=== PATIENT | male | born 1965 | race Caucasian/White ===

== ENCOUNTER 2017-02-19 03:20 | Inpatient (IN) | payer OTHER ==
[2017-02-19] MEDS: SODIUM CHLORIDE 0.9% 1,000 ML IV ONE ×2 (03:20→09:26)
[2017-02-19] MEDS: NOREPINEPHRIN 4 MG-0.9% NS PMX 4 MG/250 ML ML IV SCH ×7 (03:26→23:51)
[2017-02-19] MEDS ORDERED: SODIUM CHLORIDE 0.9% 1,000 ML IV ONE ×2 (03:34→18:19)
--- NOTE | 2017-02-19 03:40 | ED ---
General Adult HPI - General Stated complaint: Unresponsive Time Seen by Provider: 02/19/17 03:20 Source: police, EMS, RN notes reviewed Mode of arrival: EMS Limitations: altered mental status, physical limitation - History of Present Illness Initial comments: Patient is a 51-year-old male presenting to emergency department by EMS. Patient was found unresponsive on arrival. Patient was asystole. Patient was intubated by EMS. Patient underwent approximately 20 minutes of CPR. Patient did receive Narcan and sodium bicarb and for epinephrine prior to arrival. Pulse did return just prior to arrival. Patient is unresponsive and provides no significant history. Upon arrival patient does lose his pulse again. EMS does suspect heroin overdose. They state there was a person present trying to provide Narcan. There was needles and other drug paraphernalia at the scene. - Related Data Home Medications Medication Instructions Recorded Confirmed Loratadine [Claritin] 10 mg PO DAILY 11/10/15 05/15/16 Omeprazole [PriLOSEC] 20 mg PO AC-BRKFST 11/10/15 05/15/16 Hydrocodone/Acetaminophen [[place] 1 tab PO Q6HR PRN 05/15/16 05/15/16 7.5-325] Previous Rx's Medication Instructions Recorded Albuterol Inhaler [Ventolin Hfa 1 - 2 puff INHALATION Q6HR PRN #1 11/11/15 Inhaler] inhaler Albuterol Nebulized [Ventolin 2.5 mg INHALATION Q4H #30 nebu 11/11/15 Nebulized] Allergies Allergy/AdvReac Type Severity Reaction Status Date / Time No Known Allergies Allergy Verified 05/15/16 15:17 Review of Systems ROS Statement: Those systems with pertinent positive or pertinent negative responses have been documented in the HPI. ROS Other: All systems not noted in ROS Statement are negative. Limitations: ROS unobtainable due to patients medical condition Past Medical History Past Medical History: GERD/Reflux Additional Past Medical History / Comment(s): hepatitis c, back pain History of Any Multi-Drug Resistant Organisms: None Reported Past Surgical History: No Surgical Hx Reported Past Psychological History: No Psychological Hx Reported Smoking Status: Former smoker Past Alcohol Use History: Occasional Past Drug Use History: None Reported General Exam Limitations: altered mental status, physical limitation General appearance: obtunded Head exam: Present: other (Bleeding from the left nares. EMS states they did attempt nasal intubation) Eye exam: Present: other (Pupils fixed and dilated) ENT exam: Present: other (Intubated) Neck exam: Present: normal inspection Respiratory exam: Present: other (No spontaneous breath sounds. Equal breath sounds with bagging insufflation) Cardiovascular Exam: Present: other (No spontaneous heart sounds. Following return of pulse patient does have tachycardia. Pedal pulses 2/4 bilateral. Radial pulses 2/4 bilateral. Carotid pulses 2/4 bilateral) GI/Abdominal exam: Present: soft. Absent: tenderness Extremities exam: Present: normal inspection Neurological exam: Present: other (Unresponsive. GCS 3.) Psychiatric exam: Present: other (Unresponsive) Skin exam: Present: normal color Course Vital Signs 02/19/17 02/19/17 02/19/17 03:28 03:54 04:00 Pulse Rate 106 H 89 Respiratory 16 16 Rate Blood Pressure 187/113 132/68 O2 Sat by Pulse 98 97 Oximetry 02/19/17 02/19/17 02/19/17 04:02 04:19 05:25 Pulse Rate 82 86 93 Respiratory 16 16 16 Rate Blood Pressure 98/54 106/56 167/80 O2 Sat by Pulse 97 95 99 Oximetry 02/19/17 06:00 Pulse Rate 83 Respiratory 16 Rate Blood Pressure 155/81 O2 Sat by Pulse 100 Oximetry - Reevaluation(s) Reevaluation #1: 02/19/17 03:38 After 1 epinephrine and a few minutes of CPR patient did have return of circulation. 02/19/17 04:44 Girlfriend was updated. The brother was reportedly arrested. Girlfriend states there is no other family. 02/19/17 04:58 Based sensory is criteria and possible urinary tract infection patient does meet criteria for severe sepsis diagnosed at 4:56 AM. 02/19/17 06:44 Patient again reevaluated and unchanged. Patient is somewhat breathing over the vent however no other activity. Case was discussed in detail with Dr. Waldron, who will consult. Case also discussed with Dr. Vergara, who will admit for hospital call. EKG Findings - EKG Comments: EKG Findings:: Normal sinus rhythm 72. For screening AV block ND 204. QRS 128. QT 520. QTc 569. Normal axis. Nonspecific intraventricular block. Lateral ST depression. Procedures - ABG Interpretation Ph: 6.96 PCO2: 65.4 PO2: 120 Bicarbonate: 13.8 Interpretation: respiratory acidosis, metabolic acidosis - Sepsis Sepsis Focused Exam #1 Time Sepsis Criteria Met: 04:56 Sepsis Focused Exam Date: 02/19/17 Sepsis Focused Exam Time: 05:30 Sepsis Focused Exam Complete: Yes Vital Signs & RN Notes Reviewed: Yes Capillary Refill: < 2 Seconds: Fingers, Toes Peripheral Pulses: Normal: Radial (R), Radial (L), Dorsalis Pedis (R), Dorsalis Pedis (L) Skin Color: Normal for Patient Respiratory Exam: wheezes Cardiovascular Exam: regular rate, normal rhythm Medical Decision Making - Lab Data Result diagrams: 02/19/17 03:55 02/19/17 03:55 Lab Results 02/19/17 02/19/17 02/19/17 Range/Units 03:43 03:55 03:55 WBC (3.8-10.6) k/uL RBC (4.30-5.90) m/uL Hgb (13.0-17.5) gm/dL Hct (39.0-53.0) % MCV (80.0-100.0) fL MCH (25.0-35.0) pg MCHC (31.0-37.0) g/dL RDW (11.5-15.5) % Plt Count (150-450) k/uL Neutrophils % (Manual) % Lymphocytes % (Manual) % Monocytes % (Manual) % Eosinophils % (Manual) % Myelocytes % % Neutrophils # (Manual) (1.3-7.7) k/uL Lymphocytes # (Manual) (1.0-4.8) k/uL Monocytes # (Manual) (0-1.0) k/uL Eosinophils # (Manual) (0-0.7) k/uL Nucleated RBCs (0-0) /100 WBC Manual Slide Review Reactive Lymphocytes Hypochromasia Macrocytosis PT (9.0-12.0) sec INR (<1.1) APTT (22.0-30.0) sec Sample Site ABG pH (7.35-7.45) ABG pCO2 (35-45) mmHg ABG pO2 (83-108) mmHg ABG HCO3 (21-25) mmol/L ABG Total CO2 (19-24) mmol/L ABG O2 Saturation (94-97) % ABG Base Excess mmol/L FiO2 % Sodium 141 (137-145) mmol/L Potassium 3.5 (3.5-5.1) mmol/L Chloride 103 (98-107) mmol/L Carbon Dioxide 14 L (22-30) mmol/L Anion Gap 24 mmol/L BUN 13 (9-20) mg/dL Creatinine 1.62 H (0.66-1.25) mg/dL Est GFR (MDRD) Af Amer 55 (>60 ml/min/1.73 sqM) Est GFR (MDRD) Non-Af 45 (>60 ml/min/1.73 sqM) Glucose 535 H* (74-99) mg/dL POC Glucose (mg/dL) 475 H (75-99) mg/dL POC Glu Car Detailer ID Jamil Jacobo Plasma Lactic Acid Ger (0.7-2.0) mmol/L Calcium 8.6 (8.4-10.2) mg/dL Total Bilirubin 0.8 (0.2-1.3) mg/dL AST 242 H (17-59) U/L ALT 216 H (21-72) U/L Alkaline Phosphatase 73 (38-126) U/L Total Creatine Kinase 281 H (55-170) U/L CK-MB (CK-2) 2.2 (0.0-2.4) ng/mL CK-MB (CK-2) Rel Index 0.8 Troponin I 0.033 (0.000-0.034) ng/mL Total Protein 5.6 L (6.3-8.2) g/dL Albumin 3.2 L (3.5-5.0) g/dL Urine Color Urine Appearance (Clear) Urine pH (5.0-8.0) Ur Specific [place] (1.001-1.035) Urine Protein (Negative) Urine Glucose (UA) (Negative) Urine Ketones (Negative) Urine Blood (Negative) Urine Nitrite (Negative) Urine Bilirubin (Negative) Urine Urobilinogen (<2.0) mg/dL Ur Leukocyte Esterase (Negative) Urine RBC (0-5) /hpf Urine WBC (0-5) /hpf Urine Sperm (None) /hpf Urine Opiates Screen (NotDetected) Ur Oxycodone Screen (NotDetected) Urine Methadone Screen (NotDetected) Ur Propoxyphene Screen (NotDetected) Ur Barbiturates Screen (NotDetected) U Tricyclic Antidepress (NotDetected) Ur Phencyclidine Scrn (NotDetected) Ur Amphetamines Screen (NotDetected) U Methamphetamines Scrn (NotDetected) U Benzodiazepines Scrn (NotDetected) Urine Cocaine Screen (NotDetected) U Marijuana (THC) Screen (NotDetected) Serum Alcohol 119 mg/dL Acetone, Qual (Negative) 02/19/17 02/19/17 02/19/17 Range/Units 03:55 03:55 03:55 WBC 20.8 H (3.8-10.6) k/uL RBC 4.37 (4.30-5.90) m/uL Hgb 14.0 (13.0-17.5) gm/dL Hct 46.2 (39.0-53.0) % MCV 105.8 H (80.0-100.0) fL MCH 32.0 (25.0-35.0) pg MCHC 30.2 L (31.0-37.0) g/dL RDW 12.6 (11.5-15.5) % Plt Count 205 (150-450) k/uL Neutrophils % (Manual) 26.0 % Lymphocytes % (Manual) 64.0 % Monocytes % (Manual) 4.0 % Eosinophils % (Manual) 2.0 % Myelocytes % 4.0 % Neutrophils # (Manual) 5.4 (1.3-7.7) k/uL Lymphocytes # (Manual) 13.3 H (1.0-4.8) k/uL Monocytes # (Manual) 0.8 (0-1.0) k/uL Eosinophils # (Manual) 0.4 (0-0.7) k/uL Nucleated RBCs 0 (0-0) /100 WBC Manual Slide Review Performed Reactive Lymphocytes Present Hypochromasia Marked Macrocytosis Slight PT 12.0 (9.0-12.0) sec INR 1.2 (<1.1) APTT 40.9 H (22.0-30.0) sec Sample Site ABG pH (7.35-7.45) ABG pCO2 (35-45) mmHg ABG pO2 (83-108) mmHg ABG HCO3 (21-25) mmol/L ABG Total CO2 (19-24) mmol/L ABG O2 Saturation (94-97) % ABG Base Excess mmol/L FiO2 % Sodium (137-145) mmol/L Potassium (3.5-5.1) mmol/L Chloride (98-107) mmol/L Carbon Dioxide (22-30) mmol/L Anion Gap mmol/L BUN (9-20) mg/dL Creatinine (0.66-1.25) mg/dL Est GFR (MDRD) Af Amer (>60 ml/min/1.73 sqM) Est GFR (MDRD) Non-Af (>60 ml/min/1.73 sqM) Glucose (74-99) mg/dL POC Glucose (mg/dL) (75-99) mg/dL POC Glu Car Detailer ID Plasma Lactic Acid Ger (0.7-2.0) mmol/L Calcium (8.4-10.2) mg/dL Total Bilirubin (0.2-1.3) mg/dL AST (17-59) U/L ALT (21-72) U/L Alkaline Phosphatase (38-126) U/L Total Creatine Kinase (55-170) U/L CK-MB (CK-2) (0.0-2.4) ng/mL CK-MB (CK-2) Rel Index Troponin I (0.000-0.034) ng/mL Total Protein (6.3-8.2) g/dL Albumin (3.5-5.0) g/dL Urine Color Urine Appearance (Clear) Urine pH (5.0-8.0) Ur Specific [place] (1.001-1.035) Urine Protein (Negative) Urine Glucose (UA) (Negative) Urine Ketones (Negative) Urine Blood (Negative) Urine Nitrite (Negative) Urine Bilirubin (Negative) Urine Urobilinogen (<2.0) mg/dL Ur Leukocyte Esterase (Negative) Urine RBC (0-5) /hpf Urine WBC (0-5) /hpf Urine Sperm (None) /hpf Urine Opiates Screen (NotDetected) Ur Oxycodone Screen (NotDetected) Urine Methadone Screen (NotDetected) Ur Propoxyphene Screen (NotDetected) Ur Barbiturates Screen (NotDetected) U Tricyclic Antidepress (NotDetected) Ur Phencyclidine Scrn (NotDetected) Ur Amphetamines Screen (NotDetected) U Methamphetamines Scrn (NotDetected) U Benzodiazepines Scrn (NotDetected) Urine Cocaine Screen (NotDetected) U Marijuana (THC) Screen (NotDetected) Serum Alcohol mg/dL Acetone, Qual Negative (Negative) 02/19/17 02/19/17 02/19/17 Range/Units 03:57 04:28 04:36 WBC (3.8-10.6) k/uL RBC (4.30-5.90) m/uL Hgb (13.0-17.5) gm/dL Hct (39.0-53.0) % MCV (80.0-100.0) fL MCH (25.0-35.0) pg MCHC (31.0-37.0) g/dL RDW (11.5-15.5) % Plt Count (150-450) k/uL Neutrophils % (Manual) % Lymphocytes % (Manual) % Monocytes % (Manual) % Eosinophils % (Manual) % Myelocytes % % Neutrophils # (Manual) (1.3-7.7) k/uL Lymphocytes # (Manual) (1.0-4.8) k/uL Monocytes # (Manual) (0-1.0) k/uL Eosinophils # (Manual) (0-0.7) k/uL Nucleated RBCs (0-0) /100 WBC Manual Slide Review Reactive Lymphocytes Hypochromasia Macrocytosis PT (9.0-12.0) sec INR (<1.1) APTT (22.0-30.0) sec Sample Site rrad ABG pH <7.00 L* (7.35-7.45) ABG pCO2 65 H (35-45) mmHg ABG pO2 120 H (83-108) mmHg ABG HCO3 14 L (21-25) mmol/L ABG Total CO2 16 L (19-24) mmol/L ABG O2 Saturation 95.0 (94-97) % ABG Base Excess -16.2 mmol/L FiO2 100 % Sodium (137-145) mmol/L Potassium (3.5-5.1) mmol/L Chloride (98-107) mmol/L Carbon Dioxide (22-30) mmol/L Anion Gap mmol/L BUN (9-20) mg/dL Creatinine (0.66-1.25) mg/dL Est GFR (MDRD) Af Amer (>60 ml/min/1.73 sqM) Est GFR (MDRD) Non-Af (>60 ml/min/1.73 sqM) Glucose (74-99) mg/dL POC Glucose (mg/dL) 438 H (75-99) mg/dL POC Glu Car Detailer ID Yogesh, Rubens Plasma Lactic Acid Ger (0.7-2.0) mmol/L Calcium (8.4-10.2) mg/dL Total Bilirubin (0.2-1.3) mg/dL AST (17-59) U/L ALT (21-72) U/L Alkaline Phosphatase (38-126) U/L Total Creatine Kinase (55-170) U/L CK-MB (CK-2) (0.0-2.4) ng/mL CK-MB (CK-2) Rel Index Troponin I (0.000-0.034) ng/mL Total Protein (6.3-8.2) g/dL Albumin (3.5-5.0) g/dL Urine Color Yellow Urine Appearance Turbid (Clear) Urine pH 5.5 (5.0-8.0) Ur Specific [place] 1.009 (1.001-1.035) Urine Protein 2+ H (Negative) Urine Glucose (UA) Negative (Negative) Urine Ketones Negative (Negative) Urine Blood Small H (Negative) Urine Nitrite Negative (Negative) Urine Bilirubin Negative (Negative) Urine Urobilinogen <2.0 (<2.0) mg/dL Ur Leukocyte Esterase Negative (Negative) Urine RBC 14 H (0-5) /hpf Urine WBC 34 H (0-5) /hpf Urine Sperm Many H (None) /hpf Urine Opiates Screen Detected H (NotDetected) Ur Oxycodone Screen Not Detected (NotDetected) Urine Methadone Screen Not Detected (NotDetected) Ur Propoxyphene Screen Not Detected (NotDetected) Ur Barbiturates Screen Not Detected (NotDetected) U Tricyclic Antidepress Not Detected (NotDetected) Ur Phencyclidine Scrn Not Detected (NotDetected) Ur Amphetamines Screen Not Detected (NotDetected) U Methamphetamines Scrn Not Detected (NotDetected) U Benzodiazepines Scrn Not Detected (NotDetected) Urine Cocaine Screen Not Detected (NotDetected) U Marijuana (THC) Screen Not Detected (NotDetected) Serum Alcohol mg/dL Acetone, Qual (Negative) 02/19/17 Range/Units 05:25 WBC (3.8-10.6) k/uL RBC (4.30-5.90) m/uL Hgb (13.0-17.5) gm/dL Hct (39.0-53.0) % MCV (80.0-100.0) fL MCH (25.0-35.0) pg MCHC (31.0-37.0) g/dL RDW (11.5-15.5) % Plt Count (150-450) k/uL Neutrophils % (Manual) % Lymphocytes % (Manual) % Monocytes % (Manual) % Eosinophils % (Manual) % Myelocytes % % Neutrophils # (Manual) (1.3-7.7) k/uL Lymphocytes # (Manual) (1.0-4.8) k/uL Monocytes # (Manual) (0-1.0) k/uL Eosinophils # (Manual) (0-0.7) k/uL Nucleated RBCs (0-0) /100 WBC Manual Slide Review Reactive Lymphocytes Hypochromasia Macrocytosis PT (9.0-12.0) sec INR (<1.1) APTT (22.0-30.0) sec Sample Site ABG pH (7.35-7.45) ABG pCO2 (35-45) mmHg ABG pO2 (83-108) mmHg ABG HCO3 (21-25) mmol/L ABG Total CO2 (19-24) mmol/L ABG O2 Saturation (94-97) % ABG Base Excess mmol/L FiO2 % Sodium (137-145) mmol/L Potassium (3.5-5.1) mmol/L Chloride (98-107) mmol/L Carbon Dioxide (22-30) mmol/L Anion Gap mmol/L BUN (9-20) mg/dL Creatinine (0.66-1.25) mg/dL Est GFR (MDRD) Af Amer (>60 ml/min/1.73 sqM) Est GFR (MDRD) Non-Af (>60 ml/min/1.73 sqM) Glucose (74-99) mg/dL POC Glucose (mg/dL) (75-99) mg/dL POC Glu Car Detailer ID Plasma Lactic Acid Ger 11.8 H* (0.7-2.0) mmol/L Calcium (8.4-10.2) mg/dL Total Bilirubin (0.2-1.3) mg/dL AST (17-59) U/L ALT (21-72) U/L Alkaline Phosphatase (38-126) U/L Total Creatine Kinase (55-170) U/L CK-MB (CK-2) (0.0-2.4) ng/mL CK-MB (CK-2) Rel Index Troponin I (0.000-0.034) ng/mL Total Protein (6.3-8.2) g/dL Albumin (3.5-5.0) g/dL Urine Color Urine Appearance (Clear) Urine pH (5.0-8.0) Ur Specific [place] (1.001-1.035) Urine Protein (Negative) Urine Glucose (UA) (Negative) Urine Ketones (Negative) Urine Blood (Negative) Urine Nitrite (Negative) Urine Bilirubin (Negative) Urine Urobilinogen (<2.0) mg/dL Ur Leukocyte Esterase (Negative) Urine RBC (0-5) /hpf Urine WBC (0-5) /hpf Urine Sperm (None) /hpf Urine Opiates Screen (NotDetected) Ur Oxycodone Screen (NotDetected) Urine Methadone Screen (NotDetected) Ur Propoxyphene Screen (NotDetected) Ur Barbiturates Screen (NotDetected) U Tricyclic Antidepress (NotDetected) Ur Phencyclidine Scrn (NotDetected) Ur Amphetamines Screen (NotDetected) U Methamphetamines Scrn (NotDetected) U Benzodiazepines Scrn (NotDetected) Urine Cocaine Screen (NotDetected) U Marijuana (THC) Screen (NotDetected) Serum Alcohol mg/dL Acetone, Qual (Negative) - Radiology Data Radiology results: image reviewed (chest x-ray shows widening of the superior mediastinum. Vascular congestion. Endotracheal tube in place. Computed tomography scan of the brain shows concern for hypoxic ischemic injury, cerebral edema. Computed tomography scan of the chest shows no evidence of aneurysm or dissection. consolidations that could represent atelectasis or aspiration.) Critical Care Time Critical Care Time: Yes Total Critical Care Time: 45 Disposition Clinical Impression: Cardiac arrest, Acute respiratory failure Disposition: ADMITTED IP TO THIS HOSP Condition: Critical
[2017-02-19 03:53] LABS: Glucose,Whole Blood 475 mg/dL (75-99)
[2017-02-19 04:04] LABS: CH 31.4; CHCM 29.8; HCT 46.2 % (39.0-53.0); HDW 2.45; Hypochromasia Marked; MCHC 30.2 g/dL (31.0-37.0); MCV 105.8 fL (80.0-100.0); Macrocytosis Slight; Mean Platelet Volume 7.1; RBC 4.37 m/uL (4.30-5.90); RDW 12.6 % (11.5-15.5); WBC 20.8 k/uL (3.8-10.6); WBC (Perox) 20.48
--- NOTE | 2017-02-19 04:05 | XR ---
INDICATION: Altered mental status COMPARISON: CXR 11/12/15 FINDINGS: Single frontal view of the chest is provided. Endotracheal tube has been placed with tip 3.3 cm above the michael. Endogastric tube extends to the stomach. Pacer pad projects over the right chest. There is cardiomegaly with widening of the superior mediastinum, concerning for vascular injury. There is pulmonary vascular congestion and interstitial edema. There is no pleural effusion or pneumothorax. There are no acute osseous findings. IMPRESSION: 1. Widening of the superior mediastinum, concerning for vascular injury. 2. Cardiomegaly with vascular congestion and interstitial edema. 3. Endotracheal tube and endogastric tube are in place.
[2017-02-19 04:08] LABS: Appearance,Urine Turbid (Clear); Bilirubin,Urine Negative (Negative); Glucose,Urine (UA) Negative (Negative); Ketones,Urine Negative (Negative); Leukocyte Esterase,Urine Negative (Negative); Nitrite,Urine Negative (Negative); PH, Urine 5.5 (5.0-8.0); Particle Count 30425; Protein,Urine 2+ (Negative); RBC,Urine 14 /hpf (0-5); Specific Gravity,Urine 1.009 (1.001-1.035); Sperm,Urine Many /hpf; UA Billing (MACRO vs. MICRO) MICRO; Urobilinogen,Urine <2.0 mg/dL (<2.0); WBC,Urine 34 /hpf (0-5)
[2017-02-19 04:16] LABS: Calcium 8.6 mg/dL (8.4-10.2); INR 1.2 (<1.1); Partial Thromboplastin Time 40.9 sec (22.0-30.0); Potassium 3.5 mmol/L (3.5-5.1); Total Bilirubin 0.8 mg/dL (0.2-1.3); Total Protein 5.6 g/dL (6.3-8.2)
--- NOTE | 2017-02-19 04:26 | CT ---
INDICATION: Altered mental status TECHNIQUE: Noncontrast helical CT acquisition was performed through the brain. Sagittal and coronal reformatted images provided. This CT exam was performed using one or more of the following dose reduction techniques: automated exposure control, adjustment of the mA and/or kV according to patient size, and/or use of iterative reconstruction technique. DOSIMETRY: CTDIvol 57.40 mGy; DLP 1029.90 mGy-cm COMPARISON: None. FINDINGS: There is no evidence of acute intracranial hemorrhage or midline shift. There is generalized sulcal effacement and loss of walton-white matter differentiation. The ventricles are narrowed. The basal cisterns are almost completely effaced. There is no tonsillar herniation. No evidence of skull fracture. The patient is intubated. There is mucosal thickening in the ethmoid air cells and layering fluid in the right maxillary sinus and the sphenoid sinus, possibly related to intubated state. The mastoid air cells are clear. IMPRESSION: 1. Generalized cerebral edema with indistinct walton-white matter differentiation, sulcal and basal cistern effacement, and narrowing of the lateral ventricles, concerning for hypoxic ischemic injury.
[2017-02-19] MEDS ORDERED: SODIUM CHLORIDE 0.9% 1,000 ML IV STA ×3 (04:28→04:57)
[2017-02-19] MEDS ORDERED: RX INFO: IV CONTRAST WAS GIVEN 1 EACH MISC MISCELLANE PRN (04:29)
[2017-02-19 04:36] LABS: Creatine Kinase MB 2.2 ng/mL (0.0-2.4); Troponin I 0.033 ng/mL (0.000-0.034)
[2017-02-19 04:38] LABS: Glucose,Whole Blood 438 mg/dL (75-99)
[2017-02-19] MEDS ORDERED: LORazepam 2 MG/ML SYRINGE IV PRN ×2 (04:40)
[2017-02-19] MEDS ORDERED: SODIUM ACETATE 50 MEQ in WATER FOR INJECTION, STERILE 250 ML IV ONE (04:42)
[2017-02-19 04:45] LABS: Add Differential Manual Differential
[2017-02-19] MEDS ORDERED: PROPOFOL 500 MG in EMPTY BAG 1 BAG IV SCH (04:45)
[2017-02-19 04:48] LABS: Manual Review Performed; Nucleated Red Blood Cells 0 /100 WBC (0-0); Reactive Lymphocytes Present; Total Cells Counted 200
[2017-02-19] MEDS ORDERED: INSULIN REGULAR 100 UNIT/ML VIAL IV ONE (04:55)
[2017-02-19] MEDS ORDERED: SODIUM CHLORIDE 0.9% 250 ML IV STA (04:57)
[2017-02-19 05:10] LABS: ABG PCO2 65 mmHg (35-45); ABG PO2 120 mmHg (83-108)
[2017-02-19 05:11] LABS: ABG HCO3 14 mmol/L (21-25); ABG PH <7.00 (7.35-7.45)
[2017-02-19 05:12] LABS: ABG Base Excess -16.2 mmol/L; ABG TCO2 16 mmol/L (19-24)
--- NOTE | 2017-02-19 05:40 | CT ---
CTA CHEST WITH CONTRAST CTA ABDOMEN + PELVIS WITH CONTRAST INDICATION: Chest pain TECHNIQUE: Helical CT acquisition was performed through the chest, abdomen, and pelvis per institutional CT angiogram protocol prior to and following the administration of intravenous contrast. Multiplanar reformatted images were provided including coronal and sagittal MIP reconstructed images. This CT exam was performed using one or more of the following dose reduction techniques: automated exposure control, adjustment of the mA and/or kV according to patient size, and/or use of iterative reconstruction technique. DOSIMETRY: DLP 2650.10 mGy-cm; CTDIvol 112.60 mGy COMPARISON: CXR 02/19/17 FINDINGS: CHEST: Endogastric tube and endotracheal tube are in place. There is no evidence of thoracic aortic aneurysm or dissection. Main pulmonary artery is normal in caliber. There is mild cardiomegaly without pericardial effusion. Small multicompartment mediastinal lymph nodes are not significant by size criteria. There are dependent consolidations in the right upper and bilateral lower lobes, right greater than left. There is subsegmental atelectasis in the left upper lobe. There is no pleural effusion or pneumothorax. There are no acute osseous findings. ABDOMEN + PELVIS: There is hepatomegaly and steatosis. Gallbladder, spleen, pancreas, and adrenal glands are unremarkable. Both kidneys enhance symmetrically. There is no hydronephrosis. Aorta and IVC are normal. There is no adenopathy. There is no evidence of small or large bowel obstruction. Visualized appendix is normal. There is fluid distention of the stomach with endogastric tube in place. Urinary bladder is decompressed with Laguerre catheter. Prostate is unremarkable. No acute osseous findings. IMPRESSION: 1. No evidence of aortic aneurysm or dissection. 2. Dependent consolidations in the upper and lower lobes, right greater than left, atelectasis or aspiration. These opacities accounted for the appearance of mediastinal widening on reference chest radiograph. 3. No evidence of acute intra-abdominal process.
[2017-02-19] MEDS: WATER FOR INJECTION, STERILE 1,000 ML with SODIUM ACETATE 150 MEQ IV SCH ×4 (05:57→20:42)
[2017-02-19] MEDS ORDERED: NALOXONE 0.4 MG/ML 1 ML VIAL IV PRN (06:47)
[2017-02-19] MEDS ORDERED: IPRATROPIUM-ALBUTEROL 3 ML NEB INHALATION PRN (06:47)
[2017-02-19] MEDS: PIPERACILLIN-TAZOBACTAM 3.375 GM in DEXTROSE/WATER 1 50ML.BAG IVPB SCH ×2 (07:28→20:16)
[2017-02-19] MEDS: IPRATROPIUM-ALBUTEROL 3 ML NEB INHALATION SCH ×4 (07:40→19:01)
[2017-02-19 08:17] LABS: Glucose,Whole Blood 291 mg/dL (75-99)
[2017-02-19 09:34] LABS: ABG Base Excess -13.5 mmol/L; ABG HCO3 13 mmol/L (21-25); ABG PCO2 35 mmHg (35-45); ABG PH 7.19 (7.35-7.45); ABG PO2 72 mmHg (83-108); ABG TCO2 14 mmol/L (19-24)
[2017-02-19] MEDS ORDERED: INSULIN REGULAR BOLUS (FROM DRIP BAG) IV PRN (09:38)
--- NOTE | 2017-02-19 10:53 | P.CNPUL ---
History of Present Illness Consult date: 02/19/17 Requesting physician: Marilyn Vergara Reason for consult: other (Status post cardiac arrest.) Chief complaint: Cardiac arrest. History of present illness: This is a 51-year-old gentleman with a history of diabetes mellitus. The patient was brought in by EMS after being found unresponsive and had undergone 20 minutes of CPR in the field and received a total of 8 mg of Narcan. The history is taken by the patient's girlfriend who stated the patient was at a friend's house drinking and she was driving him home when he was passing out in the car she was trying to shake him awake. When she got to the house herself and another friend dragged into the house on a blanket. They're unsure if he was breathing at that time. The girlfriend called the patient's brother who then called 911. He arrived at the house with Narcan. Apparently there was drug paraphernalia at the scene and suspected heroin overdose. His urine drug screen was positive for opiates. Serum alcohol 119 The patient did obtain return of spontaneous circulation was intubated and transferred here to the intensive care unit. He is seen today in consultation. He is on the mechanical ventilator at assist control mode rate of 24, tidal volume 600, FiO2 100% and a PEEP of 5. Earlier blood gases at 4:30 AM revealed a pO2 120, pCO2 of 65 and a pH less than 7. The patient does not respond to any verbal or painful stimuli. There is absent ocular cephalic response, absent corneal response, pupils are fixed and dilated. There is no gag reflex. He is not breathing over the ventilator. He is currently receiving a 0.9 normal saline at 100 MLS per hour. He did receive 5 L of fluid resuscitation. He has a D5W with 3 A of sodium acetate at 125 miles per hour. He is on norepinephrine at 20 mcg/m. He has received IV Zosyn. Computed tomography scan of the brain revealed generalized cerebral edema with indistinct [place]-white matter differentiation, sulcal and basal cistern effacement, and narrowing of the lateral ventricles concerning for hypoxic ischemic injury. Chest x-ray revealed evidence of widening of the superior mediastinum, cardiomegaly. CT of the chest revealed no evidence of aortic aneurysm or dissection. There was some consolidation of the upper and lower lobes right greater than left suspicious for aspiration. Review of Systems ROS unobtainable: due to endotracheal tube Past Medical History Past Medical History: Diabetes Mellitus, GERD/Reflux Additional Past Medical History / Comment(s): hepatitis c, back pain History of Any Multi-Drug Resistant Organisms: None Reported Past Surgical History: No Surgical Hx Reported Past Psychological History: No Psychological Hx Reported Smoking Status: Former smoker Past Alcohol Use History: Occasional Past Drug Use History: None Reported Medications and Allergies Home Medications Medication Instructions Recorded Confirmed Type Loratadine [Claritin] 10 mg PO DAILY 11/10/15 05/15/16 History Omeprazole [PriLOSEC] 20 mg PO AC-BRKFST 11/10/15 05/15/16 History Hydrocodone/Acetaminophen [[place] 1 tab PO Q6HR PRN 05/15/16 05/15/16 History 7.5-325] Allergies Allergy/AdvReac Type Severity Reaction Status Date / Time No Known Allergies Allergy Verified 05/15/16 15:17 Physical Exam Vitals: Vital Signs Temp Pulse Resp BP Pulse Ox 02/19/17 09:20 78 0 L 97/65 92 L 02/19/17 09:10 78 0 L 98/66 91 L 02/19/17 09:00 78 0 L 94/62 90 L 02/19/17 08:50 79 0 L 94/65 90 L 02/19/17 08:40 80 0 L 71/48 89 L 02/19/17 08:30 91.7 F L 81 24 71/48 87 L 02/19/17 08:21 77 18 85/50 94 L 02/19/17 08:20 91.7 F L 78 89 L 02/19/17 08:19 77 18 85/50 94 L 02/19/17 08:11 77 02/19/17 07:52 77 18 82/49 94 L 02/19/17 07:42 76 02/19/17 07:35 77 18 81/45 94 L 02/19/17 06:54 68 24 84/49 100 Intake and Output 02/18/17 02/19/17 02/19/17 22:59 06:59 14:59 Intake Total 7.125 88.562 Output Total 0 Balance 7.125 88.562 Intake: Intake, IV Titration 7.125 88.562 Amount Norepinephrin 4 mg-0.9% 7.125 88.562 Ns Pmx 4 mg In 250 ml @ Titrate IV .Q0M [facility] Rx#: [id number] Output: Urine 0 Other: Weight 114 kg Patient Weight 02/20/17 06:59 Weight 114 kg GENERAL EXAM: Unresponsive, intubated. HEAD: Normocephalic. EYES: Pupils are fixed and dilated. NOSE: Clear with pink turbinates. THROAT: No erythema or exudates. NECK: No masses, no JVD. CHEST: No chest wall deformity. LUNGS: Equal air entry with no crackles, wheeze, rhonchi or dullness. CVS: S1 and S2 normal with no audible murmurs, regular rhythm. ABDOMEN: Soft, hypoactive bowel sounds.. SPINE: No scoliosis or deformity SKIN: No rashes Extremities: There is trace peripheral edema. No clubbing, no cyanosis. Peripheral pulses are intact. Results - Laboratory Findings CBC and BMP: 02/19/17 03:55 02/19/17 03:55 ABG ABG pH 7.19 (7.35-7.45) L* 02/19/17 09:25 ABG pCO2 35 mmHg (35-45) 02/19/17 09:25 ABG pO2 72 mmHg (83-108) L 02/19/17 09:25 ABG O2 Saturation 90.0 % (94-97) L 02/19/17 09:25 PT/INR, D-dimer PT 12.0 sec (9.0-12.0) 02/19/17 03:55 INR 1.2 (<1.1) 02/19/17 03:55 Abnormal lab findings: Abnormal Labs 02/19/17 02/19/17 02/19/17 07:49 08:15 09:25 ABG pH 7.19 L* ABG pO2 72 L ABG HCO3 13 L ABG Total CO2 14 L ABG O2 Saturation 90.0 L POC Glucose (mg/dL) 291 H Plasma Lactic Acid Ger 11.1 H* - Diagnostic Findings Chest x-ray: image reviewed Assessment and Plan Plan: Impression: #1 Cardiac arrest secondary to suspected heroin overdose. Currently intubated and on mechanical ventilator. #2 Anoxic brain injury secondary to above. Computed tomography scan of the brain revealed generalized cerebral edema with indistinct [place]-white matter differentiation, sulcal and basal cistern effacement, and narrowing of the lateral ventricles concerning for hypoxic ischemic injury. #3 History of alcohol abuse. #4 History of diabetes mellitus. Plan: The patient was seen and evaluated by Dr. Simmons. His chest x-ray ABGs and labs were reviewed. The patient appears to have sustained severe anoxic brain injury. His family members are at the bedside. Again, there is absence of the oculocephalic response, no corneal reflex, no gag reflex, pupils remained fixed and dilated. He does not respond to verbal or painful stimuli. He is not breathing over the vent. A brain protocol was performed the patient was on a T piece for 100% for 8 minutes without any spontaneous respirations. There is discussion regarding possible discontinuation of life support. In the interim, we'll continue with full supportive care. Ventilator adjustments will be made according to the arterial blood gas results. We'll continue to follow. Critical care time 40 minutes. Time with Patient: Greater than 30
[2017-02-19] MEDS: LEVOFLOXACIN 750MG-D5W PMX 750 MG in DEXTROSE/WATER 1 150ML.BAG IVPB SCH (11:11)
[2017-02-19 11:12] LABS: Glucose,Whole Blood 245 mg/dL (75-99)
[2017-02-19] MEDS: PANTOPRAZOLE 40 MG/10 ML VIAL IV SCH (11:12)
[2017-02-19] MEDS: INSULIN REGULAR 100 UNIT in SODIUM CHLORIDE 0.9% 100 ML IV SCH (11:29)
[2017-02-19 11:34] LABS: Glucose,Whole Blood 289 mg/dL (75-99)
[2017-02-19 12:30] LABS: Glucose,Whole Blood 232 mg/dL (75-99)
[2017-02-19 14:04] LABS: Glucose,Whole Blood 201 mg/dL (75-99)
--- NOTE | 2017-02-19 14:51 | P.CONS ---
History of Present Illness - Reason for Consult Consult date: 02/19/17 - Chief Complaint Unresponsive - History of Present Illness This 51-year-old obese male being evaluated by the neurology service for unresponsiveness status post cardiac arrest. He was brought to the ER via EMS after being found unresponsive. He was being driven home by his girlfriend who witnessed him pass out and he has not regained consciousness at that time EMS did and administered Narcan on seen. And he underwent 20 minutes of CPR in the field. There is a known history of drug use. His drug screen was positive for opiates. Serum alcohol level was 119. He remains intubated and sedated in the ICU. CT of the brain showed no acute intracranial abnormalities. It did show generalized cerebral edema within distinct [place] white matter differentiation. Findings were concerning for hypoxic ischemic injury Review of Systems All systems: negative Constitutional: Reports as per HPI Past Medical History Past Medical History: Diabetes Mellitus, GERD/Reflux Additional Past Medical History / Comment(s): hepatitis c, back pain History of Any Multi-Drug Resistant Organisms: None Reported Past Surgical History: No Surgical Hx Reported Past Psychological History: No Psychological Hx Reported Additional Psychological History / Comment(s): substance abuse history per girlfriend Marina, crack and alcohol. Had been to inpatient rehab Smoking Status: Former smoker Past Alcohol Use History: Occasional Additional Past Alcohol Use History / Comment(s): per girlfriend, patient is a daily drinker, 1 pint of Black Velvet daily on average Past Drug Use History: None Reported Additional Drug Use History / Comment(s): Crack - Past Family History Father Additional Family Medical History / Comment(s): unknown history Medications and Allergies Home Medications Medication Instructions Recorded Confirmed Type Loratadine [Claritin] 10 mg PO DAILY 11/10/15 02/19/17 History Omeprazole [PriLOSEC] 20 mg PO AC-BID 11/10/15 02/19/17 History Hydrocodone/Acetaminophen [[place] 1 tab PO QID PRN 05/15/16 02/19/17 History 7.5-325] Albuterol Inhaler [Ventolin Hfa 1 - 2 puff INHALATION RT-QID PRN 02/19/17 History Inhaler] Albuterol Nebulized [Ventolin 2.5 mg INHALATION RT-QID PRN 02/19/17 02/19/17 History Nebulized] Gabapentin 600 mg PO TID 02/19/17 02/19/17 History metFORMIN HCL [Glucophage] 500 mg PO DAILY 02/19/17 02/19/17 History Allergies Allergy/AdvReac Type Severity Reaction Status Date / Time No Known Allergies Allergy Verified 02/19/17 11:01 Physical Exam Vitals: Vital Signs Temp Pulse Pulse Pulse Pulse Resp BP 02/19/17 13:00 88 24 79/52 02/19/17 12:30 94 24 87/55 02/19/17 12:20 97 23 72/43 02/19/17 12:10 89 24 132/83 02/19/17 12:00 97 24 141/87 02/19/17 11:55 93 02/19/17 11:50 90 23 79/52 02/19/17 11:40 88 24 90/56 02/19/17 11:32 87 02/19/17 11:30 85 24 68/47 02/19/17 11:20 97.6 F 86 24 73/51 02/19/17 11:10 85 23 65/46 02/19/17 11:00 86 24 02/19/17 10:50 88 24 02/19/17 10:40 88 23 79/53 02/19/17 10:30 112 H 24 79/53 02/19/17 10:20 79 0 L 99/64 02/19/17 10:10 79 0 L 100/67 02/19/17 10:00 79 0 L 98/67 02/19/17 09:50 78 0 L 97/65 02/19/17 09:40 79 0 L 103/66 02/19/17 09:30 77 0 L 104/67 02/19/17 09:20 78 0 L 97/65 02/19/17 09:10 78 0 L 98/66 02/19/17 09:00 78 0 L 94/62 02/19/17 08:50 79 0 L 94/65 02/19/17 08:40 80 0 L 71/48 02/19/17 08:30 91.7 F L 81 24 71/48 02/19/17 08:21 77 18 85/50 02/19/17 08:20 91.7 F L 78 02/19/17 08:19 77 18 85/50 02/19/17 08:11 77 02/19/17 07:52 77 18 82/49 02/19/17 07:42 76 02/19/17 07:35 77 18 81/45 02/19/17 07:18 91.7 F L 92 92 92 28 H 02/19/17 06:54 68 24 84/49 BP Pulse Ox 02/19/17 13:00 97 02/19/17 12:30 96 02/19/17 12:20 96 02/19/17 12:10 96 02/19/17 12:00 96 02/19/17 11:55 02/19/17 11:50 96 02/19/17 11:40 96 02/19/17 11:32 02/19/17 11:30 94 L 02/19/17 11:20 93 L 02/19/17 11:10 91 L 02/19/17 11:00 89 L 02/19/17 10:50 88 L 02/19/17 10:40 88 L 02/19/17 10:30 80 L 02/19/17 10:20 96 02/19/17 10:10 95 02/19/17 10:00 94 L 02/19/17 09:50 94 L 02/19/17 09:40 93 L 02/19/17 09:30 93 L 02/19/17 09:20 92 L 02/19/17 09:10 91 L 02/19/17 09:00 90 L 02/19/17 08:50 90 L 02/19/17 08:40 89 L 02/19/17 08:30 87 L 02/19/17 08:21 94 L 02/19/17 08:20 89 L 02/19/17 08:19 94 L 02/19/17 08:11 02/19/17 07:52 94 L 02/19/17 07:42 02/19/17 07:35 94 L 02/19/17 07:18 77/49 89 L 02/19/17 06:54 100 Intake and Output 02/18/17 02/19/17 02/19/17 22:59 06:59 14:59 Intake Total 7.125 2431.213 Output Total 270 Balance 7.125 2161.213 Intake: Intake, IV Titration 7.125 2431.213 Amount Insulin Regular 100 unit 21.151 In Sodium Chloride 0.9% 100 ml @ Per Protocol IV .Q0M [facility] Rx#:[id number] Levofloxacin 750Mg-D5w 100 Pmx 750 mg In Dextrose/ Water 1 150ml.bag @ 100 mls/hr IVPB Q24H [facility] Rx#: [id number] Norepinephrin 4 mg-0.9% 7.125 338.562 Ns Pmx 4 mg In 250 ml @ Titrate IV .Q0M [facility] Rx#: [id number] Piperacillin-Tazobactam 3 12.5 .375 gm In Dextrose/Water 1 50ml.bag @ 12.5 mls/hr IVPB Q8HR [facility] Rx#: [id number] Sodium Acetate 50 meq In 500 Water For Injection, Sterile 250 ml @ 900 mls/ hr IV ONCE ONE Rx#: [id number] Sodium Chloride 0.9% 1, 460 000 ml @ 100 mls/hr IV . Q10H [facility] Rx#:[id number] Sodium Chloride 0.9% 1, 999 000 ml @ 999 mls/hr IV . Q1H1M [facility] Rx#:[id number] Output: Urine 270 Other: Weight 114 kg Patient Weight 02/20/17 06:59 Weight 114 kg Lying in ICU bed intubated and sedated. - Constitutional General appearance: obese - EENT Eyes: no PERRLA - Neck Neck: no rigidity - Respiratory On respirator - Gastrointestinal General gastrointestinal: distended - Neurologic The patient is intubated and sedated lying in his ICU bed. There is no spontaneous movement. There is no withdrawal to any painful stimuli. Is no pupillary response. Cephalic reflex is negative. There is no gag reflex elicited with manipulation of his tube. He'll reflex is negative. Babinski is negative. Results CBC & Chem 7: 02/19/17 03:55 02/19/17 03:55 Labs: Abnormal Lab Results - Last 24 Hours (Table) 02/19/17 02/19/17 02/19/17 Range/Units 07:49 08:15 09:25 ABG pH 7.19 L* (7.35-7.45) ABG pO2 72 L (83-108) mmHg ABG HCO3 13 L (21-25) mmol/L ABG Total CO2 14 L (19-24) mmol/L ABG O2 Saturation 90.0 L (94-97) % POC Glucose (mg/dL) 291 H (75-99) mg/dL Plasma Lactic Acid Ger 11.1 H* (0.7-2.0) mmol/L 02/19/17 02/19/17 02/19/17 Range/Units 11:10 11:33 12:27 ABG pH (7.35-7.45) ABG pO2 (83-108) mmHg ABG HCO3 (21-25) mmol/L ABG Total CO2 (19-24) mmol/L ABG O2 Saturation (94-97) % POC Glucose (mg/dL) 245 H 289 H 232 H (75-99) mg/dL Plasma Lactic Acid Ger (0.7-2.0) mmol/L 02/19/17 Range/Units 14:03 ABG pH (7.35-7.45) ABG pO2 (83-108) mmHg ABG HCO3 (21-25) mmol/L ABG Total CO2 (19-24) mmol/L ABG O2 Saturation (94-97) % POC Glucose (mg/dL) 201 H (75-99) mg/dL Plasma Lactic Acid Ger (0.7-2.0) mmol/L Assessment and Plan (1) Opiate use Status: Suspected (2) Hypoxic brain injury Status: Acute (3) Acute respiratory failure Status: Acute (4) Cardiac arrest Status: Acute Plan: Given his significant downtime, extent of needed CPR, and current exam, his prognosis is quite poor. Continue mechanical ventilation and continue supportive measures, continue neurological checks. EEG has just been performed and we will evaluate that soon. We will continue to evaluate and make further recommendations based on his condition. Next I have reviewed the history and physical on the above patient. I have reviewed the above note, and agree.
[2017-02-19 16:10] LABS: Glucose,Whole Blood 163 mg/dL (75-99)
[2017-02-19 17:12] LABS: Glucose,Whole Blood 122 mg/dL (75-99)
[2017-02-19 18:43] LABS: ABG Base Excess -1.9 mmol/L; ABG HCO3 22 mmol/L (21-25); ABG PCO2 38 mmHg (35-45); ABG PH 7.39 (7.35-7.45); ABG PO2 71 mmHg (83-108); ABG TCO2 24 mmol/L (19-24)
[2017-02-19 18:51] LABS: Glucose,Whole Blood 110 mg/dL (75-99)
[2017-02-19 19:33] LABS: Calcium 7.1 mg/dL (8.4-10.2)
[2017-02-19 20:14] LABS: Glucose,Whole Blood 108 mg/dL (75-99)
[2017-02-19 23:05] LABS: Glucose,Whole Blood 111 mg/dL (75-99)
[2017-02-19 23:06] LABS: Glucose,Whole Blood 121 mg/dL (75-99)
[2017-02-19 23:11] LABS: Glucose,Whole Blood 119 mg/dL (75-99)
[2017-02-20] MEDS: WATER FOR INJECTION, STERILE 1,000 ML with SODIUM ACETATE 150 MEQ IV SCH ×6 (00:10→18:27)
[2017-02-20 00:14] LABS: Glucose,Whole Blood 119 mg/dL (75-99)
[2017-02-20] MEDS: NOREPINEPHRIN 4 MG-0.9% NS PMX 4 MG/250 ML ML IV SCH ×4 (02:02→09:23)
[2017-02-20 02:05] LABS: Glucose,Whole Blood 127 mg/dL (75-99)
[2017-02-20] MEDS: PIPERACILLIN-TAZOBACTAM 3.375 GM in DEXTROSE/WATER 1 50ML.BAG IVPB SCH ×3 (02:05→16:41)
[2017-02-20 03:14] LABS: Glucose,Whole Blood 127 mg/dL (75-99)
[2017-02-20 04:26] LABS: Glucose,Whole Blood 123 mg/dL (75-99)
[2017-02-20 05:07] LABS: Glucose,Whole Blood 124 mg/dL (75-99)
[2017-02-20] MEDS ORDERED: IBUPROFEN 600 MG TAB PO PRN (05:56)
[2017-02-20 06:43] LABS: Glucose,Whole Blood 131 mg/dL (75-99)
[2017-02-20] MEDS: LEVOFLOXACIN 750MG-D5W PMX 750 MG in DEXTROSE/WATER 1 150ML.BAG IVPB SCH (06:50)
--- NOTE | 2017-02-20 07:08 | XR ---
EXAMINATION TYPE: XR chest 1V portable DATE OF EXAM: 02/20/2017 6:57 AM COMPARISON: 02/19/2017 HISTORY: Altered mental status FINDINGS: There are bilateral pleural effusions with cardiomegaly and bibasilar infiltrate. There is a diffuse interstitial pattern. ET and NG tube stable. Stable upper mediastinal soft tissue prominence. IMPRESSION: 1. Bilateral infiltrates and pleural effusion correlate for vascular congestion or pneumonia. 2. Stable upper mediastinal prominence as previously reported.
[2017-02-20] MEDS: IPRATROPIUM-ALBUTEROL 3 ML NEB INHALATION SCH ×4 (08:13→21:18)
[2017-02-20 08:26] LABS: Glucose,Whole Blood 89 mg/dL (75-99)
[2017-02-20 08:55] LABS: INR 1.4 (<1.1); Partial Thromboplastin Time 28.9 sec (22.0-30.0); Prothrombin Time 13.4 sec (9.0-12.0)
[2017-02-20 09:03] LABS: Calcium 6.8 mg/dL (8.4-10.2); Magnesium 1.1 mg/dL (1.6-2.3); Phosphorous 1.4 mg/dL (2.5-4.5); Potassium 5.4 mmol/L (3.5-5.1)
[2017-02-20 09:15] LABS: Basophils % (A) 0 %; CH 31.5; Eosinophils % (A) 0 %; HCT 40.8 % (39.0-53.0); HDW 2.49; HGB 13.8 gm/dL (13.0-17.5); Luc # (Auto) 0.14; Luc % (Auto) 1; Lymphocytes # (A) 2.3 k/uL (1.0-4.8); Lymphocytes % (A) 20 %; MCH 32.5 pg (25.0-35.0); MCHC 33.8 g/dL (31.0-37.0); Mean Platelet Volume 7.1; Monocytes # (A) 0.7 k/uL (0-1.0); Monocytes % (A) 6 %; Neutrophils # (A) 8.4 k/uL (1.3-7.7); Neutrophils % (A) 72 %; RBC 4.25 m/uL (4.30-5.90); RDW 13.3 % (11.5-15.5); WBC 11.6 k/uL (3.8-10.6); WBC (Perox) 11.73
[2017-02-20 09:16] LABS: MCV 96.1 fL (80.0-100.0)
[2017-02-20] MEDS: CHLORHEXIDINE GLUCONATE 15 ML CUP MUCOUS MEM SCH ×2 (09:20→21:50)
[2017-02-20] MEDS ORDERED: PROPOFOL 50 ML IV ONE (10:11)
--- NOTE | 2017-02-20 10:38 | XR ---
EXAMINATION TYPE: XR chest 1V confirm line [facility] DATE OF EXAM: 02/20/2017 10:33 AM COMPARISON: 02/20/2017 HISTORY: Central line placement FINDINGS: There are bilateral pleural effusions with cardiomegaly and bibasilar infiltrate. There is a diffuse interstitial pattern. Left-sided central line seen with the tip in the distal margin of the right atrium. NG tube noted. ET tube approximately 6 cm above michael. IMPRESSION: 1. Diffuse airspace disease suggestive of diffuse pneumonia, ARDS or pulmonary edema. 2. No pneumothorax postcentral line placement. Tip is somewhat distal within the right atrium.
[2017-02-20] MEDS: PANTOPRAZOLE 40 MG/10 ML VIAL IV SCH (10:47)
[2017-02-20 10:50] LABS: ABG Base Excess -1.4 mmol/L; ABG HCO3 22 mmol/L (21-25); ABG PCO2 30 mmHg (35-45); ABG PH 7.47 (7.35-7.45); ABG PO2 98 mmHg (83-108); ABG TCO2 23 mmol/L (19-24)
[2017-02-20 10:52] LABS: ABG PH 7.29 (7.35-7.45)
[2017-02-20 10:53] LABS: ABG Base Excess -0.1 mmol/L; ABG HCO3 25 mmol/L (21-25); ABG PCO2 55 mmHg (35-45); ABG PO2 29 mmHg (83-108); ABG TCO2 27 mmol/L (19-24)
--- NOTE | 2017-02-20 10:58 | HP ---
DATE OF ADMISSION: CHIEF COMPLAINT: Unresponsiveness. HISTORY OF PRESENT ILLNESS: This 51-year-old gentleman with a past medical history of diabetes mellitus, history of gastroesophageal reflux disease, history of hepatitis C, history of back pain, history of substance abuse history, history of cocaine and alcohol, history of nicotine dependence was found to be unresponsive at home. EMS was called and apparently 20 minutes of CPR was done. Patient also received Narcan and bicarbonate. Epinephrine not available to EMS. The patient had recurrent episodes of cardiac arrest with significant resuscitative processes in between. In the ER notes, it is noted that there were needles at the scene per the EMS. So, on admission the patient also had acute metabolic and respiratory acidosis. WBC is 20.8. The patient has significant evidence of anoxic encephalopathy with absent corneal reflexes and as well as mid-dilated pupils also. The glucose found to be 535 and plasma lactic acid is 11.1 and creatine kinase 281, AST is 242. CT scan of the brain showed cerebral edema. Drug screen showed opiates and as well as alcohol 119. The patient has been closely monitored. PAST MEDICAL HISTORY: History of diabetes mellitus, GERD, hepatitis C, history of back pain. MEDICATIONS: 1. Glucophage 500 mg p.o. daily. 2. Prilosec 20 mg a.c. b.i.d. 3. Claritin 10 mg daily. 4. [place] 1 tablet p.o. q.i.d. p.r.n. 5. Gabapentin 60 mg p.o. t.i.d. 6. Ventolin 2.5 q.i.d. p.r.n. 7. Ventolin HFA 1 to 2 puffs q.i.d. p.r.n. ALLERGIES: None. FAMILY HISTORY: No history of heart disease or strokes in the family. SOCIAL HISTORY: Substance abuse as mentioned earlier. Previous smoking per chart. Review of systems could not be taken. The patient is unresponsive. PHYSICAL EXAMINATION: Pulse 88, blood pressure 79/52, respirations 20, pulse ox 97% on 50% FiO2. Vent settings are noted. Temperature 97.6. HEENT: Conjunctivae normal. Pupils remain dilated. Oral mucosa moist. NECK: No jugular venous distention. No carotid bruit. No lymph node enlargement. CARDIOVASCULAR: S1 and S2. RESPIRATORY: Breath sounds diminished at the bases. A few scattered rhonchi and crackles. ABDOMEN: Soft, obese, nontender. No mass palpable. LEGS: No edema, no swelling. NERVOUS SYSTEM: Patient is sedated and unresponsive at this time on mechanical ventilation. SKIN: No ulcer, rash or bleeding. JOINTS: No active deforming arthropathy. LABS: WBC 20.8, MCV 105.8. ABG 7.19, pCO2 of 35, pO2 72. Glucose of 538, creatinine is 1.62. ASSESSMENT: 1. Cardiopulmonary arrest, possibly secondary to drug overdose with acute respiratory failure, on mechanical ventilation. 2. Acute hypoxic respiratory failure, on mechanical ventilation. 3. Acute metabolic acidosis. 4. Possible anoxic hypoxic encephalopathy and cerebral edema in the ct scan. 5. Diabetes mellitus type 2, uncontrolled. 6. Increased plasma lactic acid. 7. Increased pain with possible acute renal failure. 8. Increased AST, ALT, possible shock liver. 9. Hypoalbuminemia with mild to moderate protein calorie malnutrition. 10. Increased CK. 11. Significant alcohol. Alcohol with serum alcohol level 119. 12. Increased WBC. 13. Increased MCV. 14. History of diabetes mellitus type 2. 15. History of gastroesophageal reflux disease. 16. History of hepatitis C. 17. History of back pain, degenerative joint disease. 18. History of substance abuse per chart including crack and alcohol. 19. FULL CODE for now. 20. Bilateral consolidation. RECOMMENDATIONS AND DISCUSSION: This 51-year-old gentleman who presented with multiple complex medical issues, will monitor the patient closely. Continue the current medications, continue the symptomatic treatment. Will continue with mechanical ventilation. Patient has significant evidence of anoxic encephalopathy. The overall prognosis is guarded, which I discussed at length with the family. Will closely follow with Dr. Simmons. Otherwise corneal responses impaired. A thoracic aortic CT was done that showed no evidence of aortic aneurysm and some dependent consolidation was also noted. I would also recommend continue with medications, . Monitor glucose closely. Guarded prognosis. Further recommendations to follow. MTDD
[2017-02-20 11:04] LABS: Glucose,Whole Blood 154 mg/dL (75-99)
[2017-02-20] MEDS: INSULIN REGULAR 100 UNIT in SODIUM CHLORIDE 0.9% 100 ML IV SCH ×2 (11:09→22:34)
[2017-02-20] MEDS: ENOXAPARIN 30 MG/0.3 ML SYRINGE SQ SCH (11:10)
[2017-02-20 11:29] LABS: Calcium 6.8 mg/dL (8.4-10.2); Magnesium 1.1 mg/dL (1.6-2.3); Phosphorous 2.5 mg/dL (2.5-4.5); Potassium 4.5 mmol/L (3.5-5.1)
[2017-02-20] MEDS ORDERED: Magnesium Replacement Protocol 1 EACH MISC MISCELLANE PRN (13:06)
--- NOTE | 2017-02-20 13:11 | P.PN ---
Subjective Principal diagnosis: Unresponsiveness This 51-year-old male continue be evaluated by the neurology service. He remains in the ICU [facility], where he is intubated and sedated. His EEG did show evidence of anoxic brain injury with severe encephalopathy. Recall to CT of the brain did show generalized cerebral edema consistent with hypoxic ischemic injury. There has been no reported progress in his neurological status since my last exam. Only members have been contacted to discuss his care. Objective - Vital Signs Vital signs: Vital Signs Temp 100.6 F H 02/20/17 10:45 Pulse 103 H 02/20/17 11:39 Resp 22 02/20/17 11:00 BP 72/65 02/20/17 09:00 Pulse Ox 80 L 02/20/17 11:00 Intake & Output 02/19/17 02/20/17 02/20/17 18:59 06:59 18:59 Intake Total 4105.213 1478.938 678.349 Output Total 605 1028 310 Balance 3500.213 450.938 368.349 Weight 114 kg 123.3 kg 123.3 kg Intake: IV 125 Water For Injection, 125 Sterile 1,000 ml @ 125 mls/hr IV .Q8H36M WALTER with Sodium Acetate 150 meq Rx#:[id number] Intake, IV Titration 4105.213 1478.938 553.349 Amount Insulin Regular 100 unit 21.151 90.849 In Sodium Chloride 0.9% 100 ml @ Per Protocol IV .Q0M WALTER Rx#:[id number] Levofloxacin 750Mg-D5w 100 100 Pmx 750 mg In Dextrose/ Water 1 150ml.bag @ 100 mls/hr IVPB Q24H WALTER Rx#: [id number] Norepinephrin 4 mg-0.9% 215.577 9624.438 262.5 Ns Pmx 4 mg In 250 ml @ Titrate IV .Q0M WALTER Rx#: [id number] Piperacillin-Tazobactam 3 12.5 87.5 .375 gm In Dextrose/Water 1 50ml.bag @ 12.5 mls/hr IVPB Q8HR WALTER Rx#: [id number] Sodium Acetate 50 meq In 625 Water For Injection, Sterile 250 ml @ 900 mls/ hr IV ONCE ONE Rx#: [id number] Sodium Chloride 0.9% 1, 760 200 200 000 ml @ 100 mls/hr IV . Q10H ONE Rx#:[id number] Sodium Chloride 0.9% 1, 999 000 ml @ 999 mls/hr IV . Q1H1M ONE Rx#:[id number] Sodium Chloride 0.9% 1, 999 000 ml @ 999 mls/hr IV . Q1H1M STA Rx#:[id number] Output: Urine 605 1028 310 Other: Voiding Method Indwelling Catheter Indwelling Catheter ABP, PAP, CO, CI - Last Documented Arterial Blood Pressure 109/109 - Constitutional Constitutional Comment(s): Intubated and sedated General appearance: Present: obese - EENT Eyes: Absent: abnormal pupil, PERRLA - Neurologic Neurologic Comment(s): He remains unresponsive and ICU. There is no spontaneous movement. There is no withdrawal any painful stimuli. There is no pupillary response. Oculocephalic reflex is negative. There is no gag reflex. - Labs CBC & Chem 7: 02/20/17 08:25 02/20/17 11:03 Labs: Abnormal Lab Results - Last 24 Hours (Table) 02/19/17 02/19/17 02/19/17 Range/Units 14:03 15:50 17:10 WBC (3.8-10.6) k/uL RBC (4.30-5.90) m/uL Plt Count (150-450) k/uL Neutrophils # (1.3-7.7) k/uL PT (9.0-12.0) sec ABG pH (7.35-7.45) ABG pCO2 (35-45) mmHg ABG pO2 (83-108) mmHg ABG Total CO2 (19-24) mmol/L ABG O2 Saturation (94-97) % Potassium (3.5-5.1) mmol/L Chloride (98-107) mmol/L BUN (9-20) mg/dL Creatinine (0.66-1.25) mg/dL Glucose (74-99) mg/dL POC Glucose (mg/dL) 201 H 163 H 122 H (75-99) mg/dL Plasma Lactic Acid Ger (0.7-2.0) mmol/L Calcium (8.4-10.2) mg/dL Phosphorus (2.5-4.5) mg/dL Magnesium (1.6-2.3) mg/dL 02/19/17 02/19/17 02/19/17 Range/Units 18:38 18:48 19:14 WBC (3.8-10.6) k/uL RBC (4.30-5.90) m/uL Plt Count (150-450) k/uL Neutrophils # (1.3-7.7) k/uL PT (9.0-12.0) sec ABG pH (7.35-7.45) ABG pCO2 (35-45) mmHg ABG pO2 71 L (83-108) mmHg ABG Total CO2 (19-24) mmol/L ABG O2 Saturation (94-97) % Potassium (3.5-5.1) mmol/L Chloride 110 H (98-107) mmol/L BUN 25 H (9-20) mg/dL Creatinine 2.18 H (0.66-1.25) mg/dL Glucose 117 H (74-99) mg/dL POC Glucose (mg/dL) 110 H (75-99) mg/dL Plasma Lactic Acid Ger (0.7-2.0) mmol/L Calcium 7.1 L (8.4-10.2) mg/dL Phosphorus (2.5-4.5) mg/dL Magnesium (1.6-2.3) mg/dL 02/19/17 02/19/17 02/19/17 Range/Units 19:14 20:12 21:01 WBC (3.8-10.6) k/uL RBC (4.30-5.90) m/uL Plt Count (150-450) k/uL Neutrophils # (1.3-7.7) k/uL PT (9.0-12.0) sec ABG pH (7.35-7.45) ABG pCO2 (35-45) mmHg ABG pO2 (83-108) mmHg ABG Total CO2 (19-24) mmol/L ABG O2 Saturation (94-97) % Potassium (3.5-5.1) mmol/L Chloride (98-107) mmol/L BUN (9-20) mg/dL Creatinine (0.66-1.25) mg/dL Glucose (74-99) mg/dL POC Glucose (mg/dL) 108 H 111 H (75-99) mg/dL Plasma Lactic Acid Ger 3.1 H* (0.7-2.0) mmol/L Calcium (8.4-10.2) mg/dL Phosphorus (2.5-4.5) mg/dL Magnesium (1.6-2.3) mg/dL 02/19/17 02/19/17 02/20/17 Range/Units 22:08 23:10 00:12 WBC (3.8-10.6) k/uL RBC (4.30-5.90) m/uL Plt Count (150-450) k/uL Neutrophils # (1.3-7.7) k/uL PT (9.0-12.0) sec ABG pH (7.35-7.45) ABG pCO2 (35-45) mmHg ABG pO2 (83-108) mmHg ABG Total CO2 (19-24) mmol/L ABG O2 Saturation (94-97) % Potassium (3.5-5.1) mmol/L Chloride (98-107) mmol/L BUN (9-20) mg/dL Creatinine (0.66-1.25) mg/dL Glucose (74-99) mg/dL POC Glucose (mg/dL) 121 H 119 H 119 H (75-99) mg/dL Plasma Lactic Acid Ger (0.7-2.0) mmol/L Calcium (8.4-10.2) mg/dL Phosphorus (2.5-4.5) mg/dL Magnesium (1.6-2.3) mg/dL 02/20/17 02/20/17 02/20/17 Range/Units 02:03 03:12 04:24 WBC (3.8-10.6) k/uL RBC (4.30-5.90) m/uL Plt Count (150-450) k/uL Neutrophils # (1.3-7.7) k/uL PT (9.0-12.0) sec ABG pH (7.35-7.45) ABG pCO2 (35-45) mmHg ABG pO2 (83-108) mmHg ABG Total CO2 (19-24) mmol/L ABG O2 Saturation (94-97) % Potassium (3.5-5.1) mmol/L Chloride (98-107) mmol/L BUN (9-20) mg/dL Creatinine (0.66-1.25) mg/dL Glucose (74-99) mg/dL POC Glucose (mg/dL) 127 H 127 H 123 H (75-99) mg/dL Plasma Lactic Acid Ger (0.7-2.0) mmol/L Calcium (8.4-10.2) mg/dL Phosphorus (2.5-4.5) mg/dL Magnesium (1.6-2.3) mg/dL 02/20/17 02/20/17 02/20/17 Range/Units 05:05 06:41 08:25 WBC 11.6 H (3.8-10.6) k/uL RBC 4.25 L (4.30-5.90) m/uL Plt Count 137 L (150-450) k/uL Neutrophils # 8.4 H (1.3-7.7) k/uL PT (9.0-12.0) sec ABG pH (7.35-7.45) ABG pCO2 (35-45) mmHg ABG pO2 (83-108) mmHg ABG Total CO2 (19-24) mmol/L ABG O2 Saturation (94-97) % Potassium (3.5-5.1) mmol/L Chloride (98-107) mmol/L BUN (9-20) mg/dL Creatinine (0.66-1.25) mg/dL Glucose (74-99) mg/dL POC Glucose (mg/dL) 124 H 131 H (75-99) mg/dL Plasma Lactic Acid Ger (0.7-2.0) mmol/L Calcium (8.4-10.2) mg/dL Phosphorus (2.5-4.5) mg/dL Magnesium (1.6-2.3) mg/dL 02/20/17 02/20/17 02/20/17 Range/Units 08:25 08:25 08:25 WBC (3.8-10.6) k/uL RBC (4.30-5.90) m/uL Plt Count (150-450) k/uL Neutrophils # (1.3-7.7) k/uL PT 13.4 H (9.0-12.0) sec ABG pH (7.35-7.45) ABG pCO2 (35-45) mmHg ABG pO2 (83-108) mmHg ABG Total CO2 (19-24) mmol/L ABG O2 Saturation (94-97) % Potassium 5.4 H (3.5-5.1) mmol/L Chloride 109 H (98-107) mmol/L BUN 32 H (9-20) mg/dL Creatinine 3.24 H (0.66-1.25) mg/dL Glucose 150 H (74-99) mg/dL POC Glucose (mg/dL) (75-99) mg/dL Plasma Lactic Acid Ger 3.3 H* (0.7-2.0) mmol/L Calcium 6.8 L (8.4-10.2) mg/dL Phosphorus 1.4 L (2.5-4.5) mg/dL Magnesium 1.1 L (1.6-2.3) mg/dL 02/20/17 02/20/17 02/20/17 Range/Units 10:24 10:44 11:02 WBC (3.8-10.6) k/uL RBC (4.30-5.90) m/uL Plt Count (150-450) k/uL Neutrophils # (1.3-7.7) k/uL PT (9.0-12.0) sec ABG pH 7.47 H 7.29 L (7.35-7.45) ABG pCO2 30 L 55 H (35-45) mmHg ABG pO2 29 L* (83-108) mmHg ABG Total CO2 27 H (19-24) mmol/L ABG O2 Saturation 98.0 H 47.0 L (94-97) % Potassium (3.5-5.1) mmol/L Chloride (98-107) mmol/L BUN (9-20) mg/dL Creatinine (0.66-1.25) mg/dL Glucose (74-99) mg/dL POC Glucose (mg/dL) 154 H (75-99) mg/dL Plasma Lactic Acid Ger (0.7-2.0) mmol/L Calcium (8.4-10.2) mg/dL Phosphorus (2.5-4.5) mg/dL Magnesium (1.6-2.3) mg/dL 02/20/17 Range/Units 11:03 WBC (3.8-10.6) k/uL RBC (4.30-5.90) m/uL Plt Count (150-450) k/uL Neutrophils # (1.3-7.7) k/uL PT (9.0-12.0) sec ABG pH (7.35-7.45) ABG pCO2 (35-45) mmHg ABG pO2 (83-108) mmHg ABG Total CO2 (19-24) mmol/L ABG O2 Saturation (94-97) % Potassium (3.5-5.1) mmol/L Chloride 109 H (98-107) mmol/L BUN 31 H (9-20) mg/dL Creatinine 3.35 H (0.66-1.25) mg/dL Glucose 152 H (74-99) mg/dL POC Glucose (mg/dL) (75-99) mg/dL Plasma Lactic Acid Ger (0.7-2.0) mmol/L Calcium 6.8 L (8.4-10.2) mg/dL Phosphorus (2.5-4.5) mg/dL Magnesium 1.1 L (1.6-2.3) mg/dL Assessment and Plan (1) Opiate use Status: Suspected (2) Hypoxic brain injury Status: Acute (3) Acute respiratory failure Status: Acute (4) Cardiac arrest Status: Acute Plan: Given his significant downtime, extent of needed CPR, and current exam, his prognosis remains quite poor. Continue mechanical ventilation and continue supportive measures. EEG results as discussed above. His family is in the process of making a decision as to the next step. We may be consulted on as- needed basis. I have reviewed the history and physical on the above patient. I have reviewed the above note, and agree.
[2017-02-20 13:31] LABS: Glucose,Whole Blood 150 mg/dL (75-99)
[2017-02-20] MEDS: NOREPINEPHRIN 16 MG-0.9%NS PMX 16 MG/250 ML ML IV SCH ×2 (13:39→22:28)
[2017-02-20] MEDS: MAGNESIUM SULFATE-D5W PMX 1 GM in DEXTROSE/WATER 1 100ML.BAG IVPB SCH ×3 (13:39→16:39)
[2017-02-20 16:24] LABS: Glucose,Whole Blood 159 mg/dL (75-99)
--- NOTE | 2017-02-20 17:30 | PN ---
This is a 51-year-old gentleman who had an [id number] cardiopulmonary arrest with a very prolonged resuscitation. He eventually had return of spontaneous circulation. He overdosed on heroin. He was resuscitated for about 20 minutes in the field and then another 20 minutes or so in our emergency department. Again, there was eventual return of spontaneous circulation and the patient was brought up to the ICU. Yesterday we attempted an apneic oxygenation test but the patient had a significant decline in his blood pressure and his saturations so that test had to be aborted. In addition, respiratory could not draw a blood gas on him to see whether or not there was a 20 mm increase in the baseline PaCO2 or if the PaCO2 had risen to above 60. [facility] was called. He has got a history of alcohol abuse and diabetes. We suspect significant anoxic brain injury. The CT scan is showing evidence of cerebral edema. EEG was ordered. I do not know that it has been officially read. The neurologist did not see the patient but the neurology PA did. There has been no major change in his overall situation. Currently he is on the assist control mode rate of 24, tidal volume 600, FiO2 of 100%, PEEP of 5. Blood gases cannot be drawn. He is getting sodium acetate at 125 mL an hour, 0.9 IV at 100 mL an hour and Levophed at 20 mcg per minute. Current vital signs include a temperature of 102.2, heart rate 96, respiratory rate 23, blood pressure 90 systolic, mean 70. Saturations are 96%. Currently unresponsive. During my evaluation yesterday, he had no corneal reflex. He had no gag reflex. No cough reflex. His pupils were fixed and dilated. He had absent doll's eyes or negative ocular cephalic reflex. Ocular vestibular or cold caloric testing was not done. He did not respond to verbal stimuli or painful stimuli and during the apneic oxygenation test even though it was aborted after 8 minutes, during that period of time he did not initiate a breath. Subsequent to that, the nurses mentioned that he apparently had movement of the toe and some coughing. HEENT examination is grossly unremarkable. Mucous membranes are moist. The endotracheal tube and NG tube noted. Neck is supple. Cardiovascular examination reveals a regular rhythm and rate. Heart sounds are distant. S1, S2 normal. No distinct murmur. Lungs reveal some coarse rhonchi. Abdomen soft. Extremities reveal significant edema. Labs are reviewed. White count 11.6, hemoglobin 13.8, hematocrit 40.8, platelet count 137,000. PT 13.4, INR 1.4, PTT is 28.9, sodium 140, potassium 5.4, chloride 109, CO2 of 23, BUN and creatinine were 32 and 3.24. Lactic acid 3.3. Magnesium 1.1, phosphorus is 1.4. Microbiology thus far is negative. Chest x-ray shows diffuse bilateral infiltrates. Medications are reviewed. Currently, the patient is on the medicines mentioned. He is also on chlorhexidine, Motrin, insulin, DuoNebs, Ativan, Levaquin, Narcan, Levophed, Zosyn and Rocephin. ASSESSMENT: 1. [id number] cardiopulmonary arrest with prolonged cardiopulmonary resuscitation and eventual return of spontaneous circulation, although, the patient has likely sustained significant anoxic brain injury. 2. History of alcohol abuse. 3. History of diabetes mellitus. 4. Heroin overdose. 5. Acute kidney injury. 6. Profound hypotension. PLAN: We will see if we can get the results of the EEG. I will attempt art line and central line today. Additional recommendation and suggestions are forthcoming. Prognosis is very poor. [facility] has been notified. Critical care time is 39 minutes.
[2017-02-20 18:07] LABS: Glucose,Whole Blood 191 mg/dL (75-99)
[2017-02-20] MEDS: SODIUM CHLORIDE 0.9% 1,000 ML IV SCH (20:00)
[2017-02-20 20:24] LABS: Glucose,Whole Blood 192 mg/dL (75-99)
[2017-02-20 21:55] LABS: Glucose,Whole Blood 175 mg/dL (75-99)
--- NOTE | 2017-02-20 22:16 | PN ---
We are still awaiting the results of the EEG. We called the neurologist and he should call back soon. I just did another evaluation of the patient. We did a formal apneic oxygenation test. He was pre-oxygenated with 100% oxygen. The patient was taken off the ventilator and put on a T-piece trial. He was off for 5 minutes. In that period of time, his PCO2 went from 30 to 54.7. That was more than a 20 mm rise in his PaCO2. During that 5-minute span, the patient did not take a breath. In addition, I went again and re-evaluated his brainstem reflexes. There was no gag reflex. There was no corneal reflex. There was no pupillary reflex. They were fixed and dilated. Likewise, the patient did not have a response to pain or verbal stimuli. Also, his oculocephalic reflex was negative or absent, as was his oculovestibular cold caloric test. 20 mL of ice cold water was injected into the left ear and there was no movement of the eyes at all. In my opinion, the patient therefore is brain . I will talk to the family. I have notified [facility].
[2017-02-21 00:21] LABS: Glucose,Whole Blood 198 mg/dL (75-99)
[2017-02-21 02:45] LABS: Glucose,Whole Blood 218 mg/dL (75-99)
[2017-02-21 04:19] LABS: Glucose,Whole Blood 255 mg/dL (75-99)
[2017-02-21] MEDS: WATER FOR INJECTION, STERILE 1,000 ML with SODIUM ACETATE 150 MEQ IV SCH ×4 (04:27→09:04)
[2017-02-21 04:50] LABS: Basophils % (A) 0 %; CH 31.7; CHCM 33.2; Eosinophils # (A) 0.1 k/uL (0-0.7); Eosinophils % (A) 0 %; HCT 41.3 % (39.0-53.0); HDW 2.78; HGB 13.9 gm/dL (13.0-17.5); Luc # (Auto) 0.17; Luc % (Auto) 2; Lymphocytes # (A) 1.1 k/uL (1.0-4.8); Lymphocytes % (A) 10 %; MCH 32.5 pg (25.0-35.0); MCHC 33.7 g/dL (31.0-37.0); MCV 96.2 fL (80.0-100.0); Mean Platelet Volume 7.3; Monocytes # (A) 0.5 k/uL (0-1.0); Monocytes % (A) 5 %; Neutrophils # (A) 9.7 k/uL (1.3-7.7); Neutrophils % (A) 84 %; RBC 4.29 m/uL (4.30-5.90); RDW 13.4 % (11.5-15.5); WBC 11.6 k/uL (3.8-10.6)
[2017-02-21 05:00] LABS: Calcium 7.4 mg/dL (8.4-10.2); Phosphorous 3.1 mg/dL (2.5-4.5)
[2017-02-21 05:26] LABS: ABG HCO3 27 mmol/L (21-25); ABG PCO2 44 mmHg (35-45); ABG PH 7.41 (7.35-7.45); ABG PO2 56 mmHg (83-108); ABG TCO2 29 mmol/L (19-24)
[2017-02-21 06:03] LABS: Glucose,Whole Blood 205 mg/dL (75-99)
--- NOTE | 2017-02-21 07:47 | XR ---
EXAMINATION TYPE: XR chest 1V portable DATE OF EXAM: 02/21/2017 7:14 AM Comparison: 02/20/2017 Clinical History: 51 year-old male tube placement Findings: ET tube satisfactory but just below the level of the thoracic inlet. NG tube courses below the diaphr agm. Left IJ CVC tip remains in the right atrium. Heart upper limits of normal in size. Diffuse perihilar and interstitial opacities persist with small pleural effusions and dense retrocardiac opacity. Patchy right basilar opacity slightly increased. Impression: 1. Continued interstitial lung disease, possible interstitial pulmonary edema. 2. Small pleural effusions relatively similar. 3. Dense retrocardiac atelectasis or consolidation persists. Some patchy opacity at the right base is increased.
[2017-02-21] MEDS: IPRATROPIUM-ALBUTEROL 3 ML NEB INHALATION SCH ×4 (07:55→20:18)
[2017-02-21 08:17] LABS: Glucose,Whole Blood 215 mg/dL (75-99)
[2017-02-21] MEDS: SODIUM CHLORIDE 0.9% 1,000 ML IV SCH (08:44)
[2017-02-21] MEDS: PIPERACILLIN-TAZOBACTAM 3.375 GM in DEXTROSE/WATER 1 50ML.BAG IVPB SCH ×3 (08:58→16:17)
[2017-02-21] MEDS: NOREPINEPHRIN 16 MG-0.9%NS PMX 16 MG/250 ML ML IV SCH (09:03)
[2017-02-21] MEDS: CHLORHEXIDINE GLUCONATE 15 ML CUP MUCOUS MEM SCH ×2 (09:03→20:12)
[2017-02-21] MEDS: PANTOPRAZOLE 40 MG/10 ML VIAL IV SCH (09:03)
[2017-02-21] MEDS: ENOXAPARIN 30 MG/0.3 ML SYRINGE SQ SCH (09:04)
[2017-02-21 09:13] LABS: Glucose,Whole Blood 203 mg/dL (75-99)
--- NOTE | 2017-02-21 09:16 | PN ---
DATE OF SERVICE: 02/20/2017 This 51-year-old gentleman admitted with unresponsiveness also had anoxic hypoxic encephalopathy. The patient also had a cardiopulmonary arrest. The patient is on mechanical ventilation. The patient also has severe metabolic acidosis. The patient also had significant findings on the EEG suggestive of severe hypoxic encephalopathy. The patient also was positive with apneic testing as well as test as well. PHYSICAL EXAM: The patient is mechanically ventilated and sedated. Pulse 106, blood pressure 96/82, respirations 27, temperature 100.4, pulse ox 94% on mechanical ventilation. HEENT: Conjunctivae normal. NECK: No jugular venous distention. CARDIOVASCULAR: S1 and S2, muffled. RESPIRATORY: Breath sounds diminished at the bases. Scattered rhonchi and crackles. ABDOMEN: Soft. NERVOUS SYSTEM: Unresponsive. SKIN: As mentioned earlier. Labs are noted. Creatinine is 3.35. ASSESSMENT: 1. Cardiopulmonary arrest, possibly secondary to drug overdose with acute hypoxic respiratory failure on mechanical ventilation. 2. Acute hypoxic respiratory failure, present on admission. 3. Acute metabolic acidosis. 4. Prolonged cardiopulmonary resuscitation and as well as possible anoxic encephalopathy with cerebral edema on the CAT scan. 5. Acute renal failure, multifactorial, worsening. 6. Diabetes mellitus type 2, uncontrolled. 7. Increased plasma lactic acid. Lactic acid secondary to renal failure. 8. Increased AST, ALT, possibly shock liver. 9. Hypoalbuminemia with mild to moderate protein calorie malnutrition. 10. Increased CK. 11. History of alcohol intake and serum alcohol 119 on presentation 12. Increased WBC. 13. Increased MCV. 14. History of diabetes mellitus type 2. 15. History of gastroesophageal reflux disease. 16. History of hepatitis C. 17. History of back pain and degenerative joint disease. 18. History of substance abuse per chart including crack cocaine and alcohol. 19. Bilateral consolidations. RECOMMENDATIONS AND DISCUSSION: In this 51-year-old gentleman who presented with multiple complex medical issues, we will monitor the patient closely. Continue the current medications. Continue symptomatic treatment. Otherwise, closely follow with Dr. Simmons and as well as Neurology. The patient has severe encephalopathy, possible terminal weaning and evaluation by. Prognosis is extremely guarded. Further recommendations to follow. [facility]
--- NOTE | 2017-02-21 09:45 | PCN ---
DATE OF PROCEDURE: PREOPERATIVE DIAGNOSIS: Frequent blood draws and blood gas monitoring. POSTOPERATIVE DIAGNOSIS: Frequent blood draws and blood gas monitoring. PROCEDURE: Left radial art line. ARTERIAL LINE PLACEMENT Indication: Hemodynamic monitoring. A time-out was completed verifying correct patient, procedure, site, positioning, and implant(s) or special equipment if applicable. Yvon's test was performed to ensure adequate perfusion. The patient's left wrist was prepped and draped in sterile fashion. 1% Lidocaine was used to anesthetize the area. An 18G Arrow arterial line was introduced into the left radial artery. The catheter was threaded over the guide wire and the needle was removed with appropriate pulsatile blood return. Blood loss was minimal. The catheter was then sutured in place to the skin and a sterile dressing applied. Perfusion to the extremity distal to the point of catheter insertion was checked and found to be adequate. The patient tolerated the procedure well and there were no immediate complications. There was good blood return and there was good waveform. The patient tolerated the procedure well. The catheter was sutured in place. There was no immediate complications.
--- NOTE | 2017-02-21 09:48 | PCN ---
DATE OF PROCEDURE: PROCEDURE: Left internal jugular triple-lumen catheter. PREOPERATIVE DIAGNOSIS: Administration of fluids and pressors. POSTOPERATIVE DIAGNOSIS: Administration of fluids and pressors. TRIPLE LUMEN CATHETER PLACEMENT Indication: Hemodynamic monitoring/Intravenous access. A time-out was completed verifying correct patient, procedure, site, positioning, and implant(s) or special equipment if applicable. The patient was placed in a dependent position appropriate for triple lumen catheter placement based on the vein to be cannulated. The patient's left neck was prepped and draped in sterile fashion. 1% Lidocaine was used to anesthetize the surrounding skin area. A triple lumen 9F Cordis catheter was introduced into the internal jugular using Seldinger technique. The catheter was threaded smoothly over the guide wire and appropriate blood return was obtained. Each lumen of the catheter was evacuated of air and flushed with sterile saline. The catheter was then sutured in place to the skin and a sterile dressing applied. Perfusion to the extremity distal to the point of catheter insertion was checked and found to be adequate. There was no immediate complication. There was good blood return from all 3 ports. The catheter was sutured in place. There was a sterile dressing applied. There was no immediate complication. A stat chest x-ray was done to check placement and rule out pneumothorax. The patient tolerated the procedure well.
[2017-02-21 09:55] LABS: Glucose,Whole Blood 203 mg/dL (75-99)
[2017-02-21 10:58] LABS: Glucose,Whole Blood 224 mg/dL (75-99)
[2017-02-21 12:07] LABS: Glucose,Whole Blood 225 mg/dL (75-99)
[2017-02-21 12:09] LABS: ABG Base Excess 3.5 mmol/L; ABG HCO3 27 mmol/L (21-25); ABG Oxygen Saturation 98.2 % (94-97); ABG PCO2 37 mmHg (35-45); ABG PH 7.47 (7.35-7.45); ABG PO2 100 mmHg (83-108); ABG TCO2 28 mmol/L (19-24)
[2017-02-21 12:10] LABS: ABG PCO2 57 mmHg (35-45); ABG PH 7.35 (7.35-7.45)
--- NOTE | 2017-02-21 12:10 | P.PN ---
"Subjective On 02/21/2017, 12 PM, the patient was reevaluated. The patient is essentially unresponsive on a mechanical ventilator. The patient is not a spine to any verbal or painful stimuli. He has absolutely no brain stem reflexes. The pupils are fixed dilated and nonreactive to light. There is no pupillary reflex , corneal reflex, acute over estimate or reflex/nose eyes, absent gag reflex, absent. Absent pain reflex, absent tonic neck reflex. In addition, an apnea test was repeated today. There was a deviation from standard protocol knowing that within 3 minutes of doing the apnea test the patient's pulse ox dropped down to low 40s. The blood gases that were initially obtained while the patient on 100% FiO2 with a PEEP of 10 and a rate of 28 with tidal volume of 500 showed a pH of 7.47 with a pCO2 of 37 and a pO2 of 100. While doing the blood gas during the apnea test, within 3 minutes on 100% TPs, the blood gas showed the following pH of 7.35 with a pCO2 of 57 and pO2 of 39. The procedure had to be aborted and this is a deviation from standard apnea test knowing that the patient had become profoundly hypoxic as evident on the blood gas. Meanwhile, the pCO2 went by 20 mmHg within 3 minutes. I think this is very much consistent with apnea and absent of any respiratory drive in the setting of brain that Patient is currently afebrile. The patient is hemodynamically stable. The patient is on 10 mics of levo fed. The patient has not been on any sedative medication or neuromuscular blockers for more than 48 hours, the patient is on his sodium as stated infusion and the patient's sodium today is at 147 with a bicarb level of 30. Renal function is impaired with a creatinine of 2.9. Patient is on insulin drip at the rate of 8.5 units an hour. Urine output has been taken off and the patient is producing around 150 mL an hour of urine output. Objective - Vital Signs Vital signs: Vital Signs Temp 98.8 F 02/21/17 08:00 Pulse 88 02/21/17 11:00 Resp 27 H 02/21/17 11:00 BP 118/65 02/21/17 11:00 Pulse Ox 100 02/21/17 11:00 Intake & Output 02/20/17 02/21/17 02/21/17 18:59 06:59 18:59 Intake Total 2774.284 2906.904 1040.040 Output Total 2360 2875 1170 Balance 414.284 31.904 -129.960 Weight 123.3 kg 116.8 kg Intake: IV 1500 1375 625 Water For Injection, 1500 1375 625 Sterile 1,000 ml @ 125 mls/hr IV .Q8H36M [facility] with Sodium Acetate 150 meq Rx#:[id number] Intake, IV Titration 5377.130 8483.904 415.040 Amount Insulin Regular 100 unit 95.596 58.089 34.743 In Sodium Chloride 0.9% 100 ml @ Per Protocol IV .Q0M [facility] Rx#:[id number] Magnesium Sulfate-D5w Pmx 300 1 gm In Dextrose/Water 1 100ml.bag @ 100 mls/hr IVPB Q1H [facility] Rx#: [id number] Norepinephrin 16 mg-0.9% 16.188 423.815 82.797 Ns Pmx 16 mg In 250 ml @ Titrate IV .Q0M [facility] Rx#: [id number] Norepinephrin 4 mg-0.9% 262.5 Ns Pmx 4 mg In 250 ml @ Titrate IV .Q0M [facility] Rx#: [id number] Piperacillin-Tazobactam 3 50.0 37.5 .375 gm In Dextrose/Water 1 50ml.bag @ 12.5 mls/hr IVPB Q8HR [facility] Rx#: [id number] Sodium Chloride 0.9% 1, 600 000 ml @ 100 mls/hr IV . Q10H [facility] Rx#:[id number] Sodium Chloride 0.9% 1, 1000 260 000 ml @ 100 mls/hr IV . Q10H [facility] Rx#:[id number] Output: Urine 2360 2875 1170 Other: Voiding Method Indwelling Catheter Indwelling Catheter Indwelling Catheter ABP, PAP, CO, CI - Last Documented Arterial Blood Pressure 112/85 - Exam Unresponsive, intubated on a mechanical ventilator. MHead exam was generally normal. There was no scleral icterus or corneal arcus. Mucous membranes were moist. Orogastric and orotracheal tube are both in place.Neck was supple and without jugular venous distension, thyromegaly, or carotid bruits. Carotids were easily palpable bilaterally. There was no adenopathy.Lungs were clear to auscultation and percussion, and with normal diaphragmatic excursion. No wheezes or rales were noted. Cardiac exam revealed the PMI to be normally situated and sized. The rhythm was regular and no extrasystoles were noted during several minutes of auscultation. The first and second heart sounds were normal and physiologic splitting of the second heart sound was noted. There were no murmurs, rubs, clicks, or gallops.Abdominal exam revealed normal bowel sounds. The abdomen was soft, non-tender, and without masses, organomegaly, or appreciable enlargement of the abdominal aorta.Examination of the extremities revealed easily palpable radial, femoral and pedal pulses. There was no cyanosis , clubbing or edema. Neurologic exam was already stated in my HPI. - Labs CBC & Chem 7: 02/21/17 04:40 02/21/17 04:40 Labs: Abnormal Lab Results - Last 24 Hours (Table) 02/20/17 02/20/17 02/20/17 Range/Units 13:29 16:22 18:03 WBC (3.8-10.6) k/uL RBC (4.30-5.90) m/uL Plt Count (150-450) k/uL Neutrophils # (1.3-7.7) k/uL ABG pO2 (83-108) mmHg ABG HCO3 (21-25) mmol/L ABG Total CO2 (19-24) mmol/L ABG O2 Saturation (94-97) % Sodium (137-145) mmol/L Chloride (98-107) mmol/L BUN (9-20) mg/dL Creatinine (0.66-1.25) mg/dL Glucose (74-99) mg/dL POC Glucose (mg/dL) 150 H 159 H 191 H (75-99) mg/dL Calcium (8.4-10.2) mg/dL 02/20/17 02/20/17 02/21/17 Range/Units 20:22 21:53 00:19 WBC (3.8-10.6) k/uL RBC (4.30-5.90) m/uL Plt Count (150-450) k/uL Neutrophils # (1.3-7.7) k/uL ABG pO2 (83-108) mmHg ABG HCO3 (21-25) mmol/L ABG Total CO2 (19-24) mmol/L ABG O2 Saturation (94-97) % Sodium (137-145) mmol/L Chloride (98-107) mmol/L BUN (9-20) mg/dL Creatinine (0.66-1.25) mg/dL Glucose (74-99) mg/dL POC Glucose (mg/dL) 192 H 175 H 198 H (75-99) mg/dL Calcium (8.4-10.2) mg/dL 02/21/17 02/21/17 02/21/17 Range/Units 02:45 04:17 04:40 WBC 11.6 H (3.8-10.6) k/uL RBC 4.29 L (4.30-5.90) m/uL Plt Count 135 L (150-450) k/uL Neutrophils # 9.7 H (1.3-7.7) k/uL ABG pO2 (83-108) mmHg ABG HCO3 (21-25) mmol/L ABG Total CO2 (19-24) mmol/L ABG O2 Saturation (94-97) % Sodium (137-145) mmol/L Chloride (98-107) mmol/L BUN (9-20) mg/dL Creatinine (0.66-1.25) mg/dL Glucose (74-99) mg/dL POC Glucose (mg/dL) 218 H 255 H (75-99) mg/dL Calcium (8.4-10.2) mg/dL 02/21/17 02/21/17 02/21/17 Range/Units 04:40 05:18 06:01 WBC (3.8-10.6) k/uL RBC (4.30-5.90) m/uL Plt Count (150-450) k/uL Neutrophils # (1.3-7.7) k/uL ABG pO2 56 L (83-108) mmHg ABG HCO3 27 H (21-25) mmol/L ABG Total CO2 29 H (19-24) mmol/L ABG O2 Saturation 89.0 L (94-97) % Sodium 147 H (137-145) mmol/L Chloride 110 H (98-107) mmol/L BUN 29 H (9-20) mg/dL Creatinine 2.90 H (0.66-1.25) mg/dL Glucose 240 H (74-99) mg/dL POC Glucose (mg/dL) 205 H (75-99) mg/dL Calcium 7.4 L (8.4-10.2) mg/dL 02/21/17 02/21/17 02/21/17 Range/Units 08:07 09:12 09:54 WBC (3.8-10.6) k/uL RBC (4.30-5.90) m/uL Plt Count (150-450) k/uL Neutrophils # (1.3-7.7) k/uL ABG pO2 (83-108) mmHg ABG HCO3 (21-25) mmol/L ABG Total CO2 (19-24) mmol/L ABG O2 Saturation (94-97) % Sodium (137-145) mmol/L Chloride (98-107) mmol/L BUN (9-20) mg/dL Creatinine (0.66-1.25) mg/dL Glucose (74-99) mg/dL POC Glucose (mg/dL) 215 H 203 H 203 H (75-99) mg/dL Calcium (8.4-10.2) mg/dL 02/21/17 Range/Units 10:56 WBC (3.8-10.6) k/uL RBC (4.30-5.90) m/uL Plt Count (150-450) k/uL Neutrophils # (1.3-7.7) k/uL ABG pO2 (83-108) mmHg ABG HCO3 (21-25) mmol/L ABG Total CO2 (19-24) mmol/L ABG O2 Saturation (94-97) % Sodium (137-145) mmol/L Chloride (98-107) mmol/L BUN (9-20) mg/dL Creatinine (0.66-1.25) mg/dL Glucose (74-99) mg/dL POC Glucose (mg/dL) 224 H (75-99) mg/dL Calcium (8.4-10.2) mg/dL Microbiology - Last 24 Hours (Table) 02/20/17 08:27 Gram Stain - Preliminary Sputum Sputum Culture - Preliminary 02/20/17 08:25 Blood Culture - Preliminary Blood No Growth after 24 hours Assessment and Plan Plan: Assessment 1 clinical brain confirmed on 2 separate clinical bedside examination. The initial examination was done by Dr. Rivas and I repeated the examination today at around noontime and the same findings were noted. The patient had no brainstem reflexes. There was some deviation from distended apnea test due to the reasons mentioned above. The patient became profoundly hypoxic with a 3 minutes of the apnea test and he had a 20 mm mercury of pCO2 rise. No change compared to the yesterday's examination 2 mild hyponatremia, rule out central DI 3 plug overdose 4 acute kidney injury 5 alcohol abuse 6 diabetes mellitus 7 hepatitis C Plan Patient has been declared brain on 2 separate neurologic examination and this was done by 2 board certified critically care specialists. Time of is 12:10 PM. Meanwhile, will support this patient's care on the mechanical ventilator. We'll switch his IV fluids to D5 water at the rate of 125 mL an hour. Continue empiric antibiotic coverage. Continue insulin drip for blood sugar control. We will let [employer] this changes and if the family is agreeable we'll transfer care to [facility] [employer] [facility] [employer]. There is a critically care evaluation that was done and 35 minutes. Time with Patient: Greater than 30"
[2017-02-21 12:11] LABS: ABG Base Excess 5.4 mmol/L; ABG HCO3 31 mmol/L (21-25); ABG Oxygen Saturation 69.1 % (94-97); ABG PO2 39 mmHg (83-108); ABG TCO2 33 mmol/L (19-24)
[2017-02-21 12:17] LABS: Glucose,Whole Blood 228 mg/dL (75-99)
[2017-02-21] MEDS: INSULIN REGULAR 100 UNIT in SODIUM CHLORIDE 0.9% 100 ML IV SCH ×2 (12:31→20:09)
[2017-02-21] MEDS: DEXTROSE 5% IN WATER 1,000 ML IV SCH ×2 (12:56→21:00)
[2017-02-21 12:59] LABS: Glucose,Whole Blood 252 mg/dL (75-99)
[2017-02-21 14:06] LABS: Glucose,Whole Blood 274 mg/dL (75-99)
--- NOTE | 2017-02-21 14:50 | CDI ---
In responding to this query, please exercise your independent professional judgment. The [facility] Coding Staff and Clinical Documentation Specialists appreciate your assistance in clarifying documentation, maintaining compliance with coding guidelines, accurately documenting patients condition and capturing severity of illness. The fact that a question is asked does not imply that any particular answer is desired or expected. Communication forms are a method of clarifying documentation and are not made part of the Legal Health Record. Thank you in advance for your clarification. Last Revision, December 2015 Harman Acevedo [address] [facility] [place] [address] Documentation Clarification Form Date: 02/21/2017 2:36:00 PM From: Radha Meyers RN, CCDS Admit Date: 02/19/2017 6:47:00 AM Patient Name: Anshul Rausch V Visit Number: [id number] Dr. Marilyn Vergara Patient history/risk factors: Suspected heroin OD, ETOH level 119 Clinical Indicators: Hypotension per Progress notes Pt found unresponsive at home in asystole, CPR for 20 minutes+ Brain Declared Vitals: HR 106, RR 16 on Mechanical vent, B/P 187/113, spo2 98% 15L BVM, Temp 91.7 rectal Treatment: LEVOPHED titrate for B/P 5.25 L IVF Bolus Arterial Line In your professional opinion, can you please specify the type of shock if known ? Septic Shock o Suspected or known causative organism o Any associated organ failure Cardiogenic Shock o Cause Hypovolemic Shock o Cause Other, please specify Unable to determine Please document in your progress notes and discharge summary in order to capture severity of illness and risk of mortality. Include clinical findings that support your diagnosis. FYI: Press F11 to launch patient chart. Place X here if this finding has no clinical significance, is not applicable or if you are not able to provide any additional documentation. Neurogenic shock MTDD
[2017-02-21 15:23] LABS: Glucose,Whole Blood 253 mg/dL (75-99)
[2017-02-21 16:05] LABS: Glucose,Whole Blood 256 mg/dL (75-99)
[2017-02-21 17:02] LABS: Glucose,Whole Blood 292 mg/dL (75-99)
[2017-02-21 17:54] LABS: Glucose,Whole Blood 272 mg/dL (75-99)
[2017-02-21 18:24] LABS: Calcium 7.5 mg/dL (8.4-10.2); Magnesium 2.2 mg/dL (1.6-2.3)
[2017-02-21 18:34] LABS: Potassium 2.7 mmol/L (3.5-5.1)
[2017-02-21] MEDS ORDERED: Potassium Replacement Protocol 1 EACH MISC MISCELLANE PRN (18:36)
[2017-02-21] MEDS ORDERED: MD COMMUNICATION TO PHARMACY 1 EACH MISC PO PRN (18:44)
[2017-02-21] MEDS ORDERED: POTASSIUM CHLORIDE 20 MEQ in WATER FOR INJECTION 1 100ML.BAG IVPB ONE (19:00)
[2017-02-21 19:05] LABS: Glucose,Whole Blood 251 mg/dL (75-99)
[2017-02-21] MEDS: POTASSIUM PHOSPHATE 10 MMOL in SODIUM CHLORIDE 0.9% 100 ML IV SCH ×2 (19:55→22:11)
[2017-02-21 20:05] LABS: Total Bilirubin 2.4 mg/dL (0.2-1.3)
[2017-02-21 20:09] LABS: Glucose,Whole Blood 219 mg/dL (75-99)
[2017-02-21] MEDS ORDERED: POTASSIUM CHLORIDE 10 MEQ in WATER FOR INJECTION 1 100ML.BAG IVPB ONE (21:00)
[2017-02-21 21:06] LABS: Glucose,Whole Blood 208 mg/dL (75-99)
--- NOTE | 2017-02-21 21:45 | PN ---
DATE OF SERVICE: 02/21/2017 This 51 -year-old gentleman presented anoxic encephalopathy also had features of the brain per two tests carried out by Dr. Dr. Guillen and Dr. Simmons. Please refer to Dr. Simmons's and Dr. Guillen's detailed notes for further information. The family and the case management and discharge planning team are waiting for legal guardianship and assorted other issues for possible [facility] considerations. On exam, pulse is 95, blood pressure 120/64, respiratory rate 28, temperature was normal. CARDIOVASCULAR: S1, S2 muffled. RESPIRATORY: Breath sounds diminished at the bases. A few scattered rhonchi. ABDOMEN: Soft. CENTRAL NERVOUS SYSTEM: The patient is mechanically ventilated and sedated. Labs at this time show ABG 7.35, glucose 252. ASSESSMENT: 1. Cardiopulmonary arrest possibly secondary to drug overdose with acute hypoxic respiratory failure on mechanical ventilation. 2. Acute hypoxic respiratory failure, present on admission. 3. Acute metabolic acidosis. 4. Prolonged cardiopulmonary resuscitation as well as possible anoxic encephalopathy with on the CT scan. 5. Acute renal failure, multifactorial, worsening. 6. Diabetes mellitus, uncontrolled. 7. Increased plasma lactic acid, possibly secondary to renal failure. 8. Increased AST, ALT, post shock liver. 9. Hypoalbuminemia with mild to moderate protein calorie malnutrition. 10. Increased CK. 11. History of alcohol intake and serum alcohol 119. 12. Increased WBC. 13. Increased MCV. 14. Type 2 diabetes mellitus. 15. History of gastroesophageal reflux disease. 16. History of hepatitis C. 17. History of back pain and degenerative joint disease. 18. History of substance abuse per chart including crack cocaine and alcohol. 19. Bilateral consolidations. RECOMMENDATIONS AND DISCUSSION: Recommend to continue current medications, continue symptomatic treatment. Otherwise, please refer to Dr. Guillen's notes. Await case management manager and social work specialist input as well as evaluation by [facility]. Prognosis guarded. Further recommendations to follow. MTDD
[2017-02-21 22:15] LABS: Glucose,Whole Blood 217 mg/dL (75-99)
[2017-02-21 23:10] LABS: Glucose,Whole Blood 207 mg/dL (75-99)
[2017-02-22 00:05] LABS: Glucose,Whole Blood 194 mg/dL (75-99)
[2017-02-22] MEDS: PIPERACILLIN-TAZOBACTAM 3.375 GM in DEXTROSE/WATER 1 50ML.BAG IVPB SCH ×2 (00:08→08:24)
[2017-02-22 01:10] LABS: Glucose,Whole Blood 183 mg/dL (75-99)
[2017-02-22] MEDS: INSULIN REGULAR 100 UNIT in SODIUM CHLORIDE 0.9% 100 ML IV SCH (01:47)
[2017-02-22 02:18] LABS: Glucose,Whole Blood 155 mg/dL (75-99)
[2017-02-22 04:39] LABS: Glucose,Whole Blood 152 mg/dL (75-99)
[2017-02-22] MEDS: DEXTROSE 5% IN WATER 1,000 ML IV SCH ×4 (04:50→11:50)
[2017-02-22 05:25] LABS: ABG Base Excess 2.9 mmol/L; ABG HCO3 27 mmol/L (21-25); ABG PCO2 44 mmHg (35-45); ABG PH 7.41 (7.35-7.45); ABG PO2 130 mmHg (83-108); ABG TCO2 29 mmol/L (19-24)
[2017-02-22 05:25] LABS: Basophils % (A) 1 %; CH 31.5; CHCM 32.5; Eosinophils # (A) 0.3 k/uL (0-0.7); Eosinophils % (A) 4 %; HGB 12.8 gm/dL (13.0-17.5); Luc # (Auto) 0.21; Luc % (Auto) 3; Lymphocytes # (A) 1.3 k/uL (1.0-4.8); Lymphocytes % (A) 18 %; MCH 32.1 pg (25.0-35.0); MCHC 32.9 g/dL (31.0-37.0); MCV 97.5 fL (80.0-100.0); Mean Platelet Volume 8.4; Monocytes # (A) 0.4 k/uL (0-1.0); Monocytes % (A) 6 %; Neutrophils # (A) 4.9 k/uL (1.3-7.7); Neutrophils % (A) 69 %; RDW 13.4 % (11.5-15.5); WBC (Perox) 6.82
[2017-02-22 05:27] LABS: Magnesium 2.3 mg/dL (1.6-2.3); Phosphorous 2.4 mg/dL (2.5-4.5)
[2017-02-22] MEDS ORDERED: POTASSIUM CHLORIDE 20 MEQ in WATER FOR INJECTION 1 100ML.BAG IVPB ONE (06:00)
[2017-02-22 06:39] LABS: Potassium 2.7 mmol/L (3.5-5.1)
[2017-02-22 06:51] LABS: Glucose,Whole Blood 116 mg/dL (75-99)
[2017-02-22 07:54] LABS: Glucose,Whole Blood 122 mg/dL (75-99)
[2017-02-22] MEDS ORDERED: POTASSIUM CHLORIDE 10 MEQ in WATER FOR INJECTION 1 100ML.BAG IVPB ONE (08:00)
--- NOTE | 2017-02-22 08:10 | XR ---
EXAMINATION TYPE: XR chest 1V portable DATE OF EXAM: 02/22/2017 6:22 AM COMPARISON: NONE INDICATION: Previous abnormal chest TECHNIQUE: Single frontal view of the chest is obtained. FINDINGS: The heart size is normal. The pulmonary vasculature is normal. Small left pleural effusion is present. Retrocardiac infiltrate may be present with silhouetting the diaphragm. There is mild atelectasis at the right base. Blunting right costophrenic angle suggestive of minimal right pleural effusion Nasogastric tube is present with tip below the diaphragm. Left central venous catheter is present wit h the tip in the proximal right atrium. Endotracheal tube may be present with tip above the michael. IMPRESSION: 1. Small left and minimal right pleural effusion. 2. Right basilar atelectasis. Retrocardiac infiltrate may also be present. 3. Lines and catheters discussed above.
[2017-02-22] MEDS: IPRATROPIUM-ALBUTEROL 3 ML NEB INHALATION SCH ×2 (08:18→11:29)
[2017-02-22 08:22] VITALS: BP 166/97
[2017-02-22] MEDS: PANTOPRAZOLE 40 MG/10 ML VIAL IV SCH (08:24)
[2017-02-22] MEDS: CHLORHEXIDINE GLUCONATE 15 ML CUP MUCOUS MEM SCH (08:24)
[2017-02-22] MEDS: ENOXAPARIN 30 MG/0.3 ML SYRINGE SQ SCH (08:24)
--- NOTE | 2017-02-22 08:30 | PN ---
ADDENDUM: Please add: FINAL DIAGNOSIS(ES): Hypotension secondary to neurogenic shock.
[2017-02-22 08:49] VITALS: RESP 28
[2017-02-22] MEDS ORDERED: DESMOPRESSIN INJ 4 MCG/ML AMP IV SCH (09:00)
--- NOTE | 2017-02-22 09:02 | P.PN ---
Subjective On 02/21/2017, 12 PM, the patient was reevaluated. The patient is essentially unresponsive on a mechanical ventilator. The patient is not a spine to any verbal or painful stimuli. He has absolutely no brain stem reflexes. The pupils are fixed dilated and nonreactive to light. There is no pupillary reflex , corneal reflex, acute over estimate or reflex/nose eyes, absent gag reflex, absent. Absent pain reflex, absent tonic neck reflex. In addition, an apnea test was repeated today. There was a deviation from standard protocol knowing that within 3 minutes of doing the apnea test the patient's pulse ox dropped down to low 40s. The blood gases that were initially obtained while the patient on 100% FiO2 with a PEEP of 10 and a rate of 28 with tidal volume of 500 showed a pH of 7.47 with a pCO2 of 37 and a pO2 of 100. While doing the blood gas during the apnea test, within 3 minutes on 100% TPs, the blood gas showed the following pH of 7.35 with a pCO2 of 57 and pO2 of 39. The procedure had to be aborted and this is a deviation from standard apnea test knowing that the patient had become profoundly hypoxic as evident on the blood gas. Meanwhile, the pCO2 went by 20 mmHg within 3 minutes. I think this is very much consistent with apnea and absent of any respiratory drive in the setting of brain that Patient is currently afebrile. The patient is hemodynamically stable. The patient is on 10 mics of levo fed. The patient has not been on any sedative medication or neuromuscular blockers for more than 48 hours, the patient is on his sodium as stated infusion and the patient's sodium today is at 147 with a bicarb level of 30. Renal function is impaired with a creatinine of 2.9. Patient is on insulin drip at the rate of 8.5 units an hour. Urine output has been taken off and the patient is producing around 150 mL an hour of urine output. On 02/22/2017, the patient is being seen in follow-up. The patient remains essentially the same. He is still completely unresponsive. No brainstem reflexes. There are 2 neurologic exams were done over the past 48 hours and both confirmed neurologic brain . The patient is status post cardiac pulmonary arrest secondary his drug overdose. He also has hypoxic respiratory failure currently on mechanical ventilation. He is currently on a assist control mode of ventilation at the rate of 28, tidal volume of 500, FiO2 of 100 % and PEEP of 5 and a chest x-ray showing lower lobe pulmonary infiltrates bilaterally. ET tube is high in the trachea. These 2 post in by another centimeter. His blood gases show a pH of 7.41 with a pCO2 of 44 and pO2 of 1: 30. The patient has also developed central diabetes insipidus and he is having a urine output of more than 200 mL an hour. His sodium level is up to 151. He is on a D5 water that was running at 1 25 mL an hour. He also has a component of neurogenic shock and pressor dependent at 4 mics. He is afebrile. He is renal function is still impaired with a creatinine of 2.5. Electrode is to be replaced especially the potassium levels. Ethics committee has been involved. The patient is being considered for organ donation. Meanwhile, we are still continuing with the supportive care to the final decision is been made regarding organ harvesting and gift of life. Objective - Vital Signs Vital signs: Vital Signs Temp 97.8 F 02/22/17 08:00 Pulse 79 02/22/17 08:30 Resp 28 H 02/22/17 08:30 BP 166/97 02/22/17 08:00 Pulse Ox 100 02/22/17 08:30 Intake & Output 02/21/17 02/22/17 02/22/17 18:59 06:59 18:59 Intake Total 2098.174 2677.564 135 Output Total 2135 1320 150 Balance -36.826 1357.564 -15 Weight 117.3 kg Intake: IV 750 Water For Injection, 750 Sterile 1,000 ml @ 125 mls/hr IV .Q8H36M WALTER with Sodium Acetate 150 meq Rx#:[id number] Intake, IV Titration 4334.121 0190.564 135 Amount Dextrose 5% in Water 1, 750 1625 125 000 ml @ 125 mls/hr IV . Q8H WALTER Rx#:[id number] Insulin Regular 100 unit 107.315 208.720 In Sodium Chloride 0.9% 100 ml @ Per Protocol IV .Q0M WALTER Rx#:[id number] Norepinephrin 16 mg-0.9% 143.359 43.844 Ns Pmx 16 mg In 250 ml @ Titrate IV .Q0M WALTER Rx#: [id number] Piperacillin-Tazobactam 3 87.5 50.0 .375 gm In Dextrose/Water 1 50ml.bag @ 12.5 mls/hr IVPB Q8HR [facility] Rx#: [id number] Potassium Chloride 10 meq 200 In Water For Injection 1 100ml.bag @ 100 mls/hr IVPB ONCE ONE Rx#: [id number] Potassium Chloride 20 meq 150 In Water For Injection 1 100ml.bag @ 50 mls/hr IVPB ONCE ONE Rx#: [id number] Potassium Chloride 20 meq 100 In Water For Injection 1 100ml.bag @ 50 mls/hr IVPB ONCE ONE Rx#: [id number] Potassium Phosphate 10 300 mmol In Sodium Chloride 0 .9% 100 ml @ 50 mls/hr IV Q2H WALTER Rx#:[id number] Sodium Chloride 0.9% 1, 260 10 000 ml @ 100 mls/hr IV . Q10H [facility] Rx#:[id number] Output: Urine 2135 1320 150 Other: Voiding Method Indwelling Catheter Indwelling Catheter ABP, PAP, CO, CI - Last Documented Arterial Blood Pressure 111/67 - Exam Unresponsive, intubated on a mechanical ventilator. MHead exam was generally normal. There was no scleral icterus or corneal arcus. Mucous membranes were moist. Orogastric and orotracheal tube are both in place.Neck was supple and without jugular venous distension, thyromegaly, or carotid bruits. Carotids were easily palpable bilaterally. There was no adenopathy.Lungs were clear to auscultation and percussion, and with normal diaphragmatic excursion. No wheezes or rales were noted. Cardiac exam revealed the PMI to be normally situated and sized. The rhythm was regular and no extrasystoles were noted during several minutes of auscultation. The first and second heart sounds were normal and physiologic splitting of the second heart sound was noted. There were no murmurs, rubs, clicks, or gallops.Abdominal exam revealed normal bowel sounds. The abdomen was soft, non-tender, and without masses, organomegaly, or appreciable enlargement of the abdominal aorta.Examination of the extremities revealed easily palpable radial, femoral and pedal pulses. There was no cyanosis , clubbing or edema. Neurologic exam was already stated in my HPI. - Labs CBC & Chem 7: 02/22/17 04:20 02/22/17 04:02 Labs: Abnormal Lab Results - Last 24 Hours (Table) 02/21/17 02/21/17 02/21/17 Range/Units 09:12 09:54 10:56 RBC (4.30-5.90) m/uL Hgb (13.0-17.5) gm/dL Plt Count (150-450) k/uL ABG pH (7.35-7.45) ABG pCO2 (35-45) mmHg ABG pO2 (83-108) mmHg ABG HCO3 (21-25) mmol/L ABG Total CO2 (19-24) mmol/L ABG O2 Saturation (94-97) % Sodium (137-145) mmol/L Potassium (3.5-5.1) mmol/L Chloride (98-107) mmol/L Carbon Dioxide (22-30) mmol/L BUN (9-20) mg/dL Creatinine (0.66-1.25) mg/dL Glucose (74-99) mg/dL POC Glucose (mg/dL) 203 H 203 H 224 H (75-99) mg/dL Calcium (8.4-10.2) mg/dL Phosphorus (2.5-4.5) mg/dL Total Bilirubin (0.2-1.3) mg/dL AST (17-59) U/L ALT (21-72) U/L 02/21/17 02/21/17 02/21/17 Range/Units 11:43 11:55 12:06 RBC (4.30-5.90) m/uL Hgb (13.0-17.5) gm/dL Plt Count (150-450) k/uL ABG pH 7.47 H (7.35-7.45) ABG pCO2 57 H (35-45) mmHg ABG pO2 39 L* (83-108) mmHg ABG HCO3 27 H 31 H (21-25) mmol/L ABG Total CO2 28 H 33 H (19-24) mmol/L ABG O2 Saturation 98.2 H 69.1 L (94-97) % Sodium (137-145) mmol/L Potassium (3.5-5.1) mmol/L Chloride (98-107) mmol/L Carbon Dioxide (22-30) mmol/L BUN (9-20) mg/dL Creatinine (0.66-1.25) mg/dL Glucose (74-99) mg/dL POC Glucose (mg/dL) 225 H (75-99) mg/dL Calcium (8.4-10.2) mg/dL Phosphorus (2.5-4.5) mg/dL Total Bilirubin (0.2-1.3) mg/dL AST (17-59) U/L ALT (21-72) U/L 02/21/17 02/21/17 02/21/17 Range/Units 12:14 12:57 14:04 RBC (4.30-5.90) m/uL Hgb (13.0-17.5) gm/dL Plt Count (150-450) k/uL ABG pH (7.35-7.45) ABG pCO2 (35-45) mmHg ABG pO2 (83-108) mmHg ABG HCO3 (21-25) mmol/L ABG Total CO2 (19-24) mmol/L ABG O2 Saturation (94-97) % Sodium (137-145) mmol/L Potassium (3.5-5.1) mmol/L Chloride (98-107) mmol/L Carbon Dioxide (22-30) mmol/L BUN (9-20) mg/dL Creatinine (0.66-1.25) mg/dL Glucose (74-99) mg/dL POC Glucose (mg/dL) 228 H 252 H 274 H (75-99) mg/dL Calcium (8.4-10.2) mg/dL Phosphorus (2.5-4.5) mg/dL Total Bilirubin (0.2-1.3) mg/dL AST (17-59) U/L ALT (21-72) U/L 02/21/17 02/21/17 02/21/17 Range/Units 15:21 16:04 17:00 RBC (4.30-5.90) m/uL Hgb (13.0-17.5) gm/dL Plt Count (150-450) k/uL ABG pH (7.35-7.45) ABG pCO2 (35-45) mmHg ABG pO2 (83-108) mmHg ABG HCO3 (21-25) mmol/L ABG Total CO2 (19-24) mmol/L ABG O2 Saturation (94-97) % Sodium (137-145) mmol/L Potassium (3.5-5.1) mmol/L Chloride (98-107) mmol/L Carbon Dioxide (22-30) mmol/L BUN (9-20) mg/dL Creatinine (0.66-1.25) mg/dL Glucose (74-99) mg/dL POC Glucose (mg/dL) 253 H 256 H 292 H (75-99) mg/dL Calcium (8.4-10.2) mg/dL Phosphorus (2.5-4.5) mg/dL Total Bilirubin (0.2-1.3) mg/dL AST (17-59) U/L ALT (21-72) U/L 02/21/17 02/21/17 02/21/17 Range/Units 17:51 17:55 17:55 RBC (4.30-5.90) m/uL Hgb (13.0-17.5) gm/dL Plt Count (150-450) k/uL ABG pH (7.35-7.45) ABG pCO2 (35-45) mmHg ABG pO2 (83-108) mmHg ABG HCO3 (21-25) mmol/L ABG Total CO2 (19-24) mmol/L ABG O2 Saturation (94-97) % Sodium 148 H (137-145) mmol/L Potassium 2.7 L* (3.5-5.1) mmol/L Chloride 112 H (98-107) mmol/L Carbon Dioxide (22-30) mmol/L BUN 25 H (9-20) mg/dL Creatinine 2.56 H (0.66-1.25) mg/dL Glucose 269 H (74-99) mg/dL POC Glucose (mg/dL) 272 H (75-99) mg/dL Calcium 7.5 L (8.4-10.2) mg/dL Phosphorus 2.0 L (2.5-4.5) mg/dL Total Bilirubin 2.4 H (0.2-1.3) mg/dL AST 497 H (17-59) U/L ALT 263 H (21-72) U/L 02/21/17 02/21/17 02/21/17 Range/Units 19:04 20:07 21:03 RBC (4.30-5.90) m/uL Hgb (13.0-17.5) gm/dL Plt Count (150-450) k/uL ABG pH (7.35-7.45) ABG pCO2 (35-45) mmHg ABG pO2 (83-108) mmHg ABG HCO3 (21-25) mmol/L ABG Total CO2 (19-24) mmol/L ABG O2 Saturation (94-97) % Sodium (137-145) mmol/L Potassium (3.5-5.1) mmol/L Chloride (98-107) mmol/L Carbon Dioxide (22-30) mmol/L BUN (9-20) mg/dL Creatinine (0.66-1.25) mg/dL Glucose (74-99) mg/dL POC Glucose (mg/dL) 251 H 219 H 208 H (75-99) mg/dL Calcium (8.4-10.2) mg/dL Phosphorus (2.5-4.5) mg/dL Total Bilirubin (0.2-1.3) mg/dL AST (17-59) U/L ALT (21-72) U/L 02/21/17 02/21/17 02/22/17 Range/Units 22:13 23:09 00:03 RBC (4.30-5.90) m/uL Hgb (13.0-17.5) gm/dL Plt Count (150-450) k/uL ABG pH (7.35-7.45) ABG pCO2 (35-45) mmHg ABG pO2 (83-108) mmHg ABG HCO3 (21-25) mmol/L ABG Total CO2 (19-24) mmol/L ABG O2 Saturation (94-97) % Sodium (137-145) mmol/L Potassium (3.5-5.1) mmol/L Chloride (98-107) mmol/L Carbon Dioxide (22-30) mmol/L BUN (9-20) mg/dL Creatinine (0.66-1.25) mg/dL Glucose (74-99) mg/dL POC Glucose (mg/dL) 217 H 207 H 194 H (75-99) mg/dL Calcium (8.4-10.2) mg/dL Phosphorus (2.5-4.5) mg/dL Total Bilirubin (0.2-1.3) mg/dL AST (17-59) U/L ALT (21-72) U/L 02/22/17 02/22/17 02/22/17 Range/Units 01:09 02:17 04:02 RBC (4.30-5.90) m/uL Hgb (13.0-17.5) gm/dL Plt Count (150-450) k/uL ABG pH (7.35-7.45) ABG pCO2 (35-45) mmHg ABG pO2 (83-108) mmHg ABG HCO3 (21-25) mmol/L ABG Total CO2 (19-24) mmol/L ABG O2 Saturation (94-97) % Sodium 151 H (137-145) mmol/L Potassium 2.7 L* (3.5-5.1) mmol/L Chloride 114 H (98-107) mmol/L Carbon Dioxide 31 H (22-30) mmol/L BUN 23 H (9-20) mg/dL Creatinine 2.50 H (0.66-1.25) mg/dL Glucose 160 H (74-99) mg/dL POC Glucose (mg/dL) 183 H 155 H (75-99) mg/dL Calcium 8.0 L (8.4-10.2) mg/dL Phosphorus 2.4 L (2.5-4.5) mg/dL Total Bilirubin (0.2-1.3) mg/dL AST (17-59) U/L ALT (21-72) U/L 02/22/17 02/22/17 02/22/17 Range/Units 04:06 04:20 04:50 RBC 4.00 L (4.30-5.90) m/uL Hgb 12.8 L (13.0-17.5) gm/dL Plt Count 101 L (150-450) k/uL ABG pH (7.35-7.45) ABG pCO2 (35-45) mmHg ABG pO2 130 H (83-108) mmHg ABG HCO3 27 H (21-25) mmol/L ABG Total CO2 29 H (19-24) mmol/L ABG O2 Saturation 99.0 H (94-97) % Sodium (137-145) mmol/L Potassium (3.5-5.1) mmol/L Chloride (98-107) mmol/L Carbon Dioxide (22-30) mmol/L BUN (9-20) mg/dL Creatinine (0.66-1.25) mg/dL Glucose (74-99) mg/dL POC Glucose (mg/dL) 152 H (75-99) mg/dL Calcium (8.4-10.2) mg/dL Phosphorus (2.5-4.5) mg/dL Total Bilirubin (0.2-1.3) mg/dL AST (17-59) U/L ALT (21-72) U/L 02/22/17 02/22/17 Range/Units 06:49 07:53 RBC (4.30-5.90) m/uL Hgb (13.0-17.5) gm/dL Plt Count (150-450) k/uL ABG pH (7.35-7.45) ABG pCO2 (35-45) mmHg ABG pO2 (83-108) mmHg ABG HCO3 (21-25) mmol/L ABG Total CO2 (19-24) mmol/L ABG O2 Saturation (94-97) % Sodium (137-145) mmol/L Potassium (3.5-5.1) mmol/L Chloride (98-107) mmol/L Carbon Dioxide (22-30) mmol/L BUN (9-20) mg/dL Creatinine (0.66-1.25) mg/dL Glucose (74-99) mg/dL POC Glucose (mg/dL) 116 H 122 H (75-99) mg/dL Calcium (8.4-10.2) mg/dL Phosphorus (2.5-4.5) mg/dL Total Bilirubin (0.2-1.3) mg/dL AST (17-59) U/L ALT (21-72) U/L Microbiology - Last 24 Hours (Table) 02/19/17 05:25 Blood Culture - Preliminary Blood No Growth after 72 hours 02/20/17 08:27 Gram Stain - Preliminary Sputum Sputum Culture - Preliminary 02/20/17 08:25 Blood Culture - Preliminary Blood No Growth after 24 hours Assessment and Plan Plan: Assessment 1 clinical brain confirmed on 2 separate clinical bedside examination. The initial examination was done by Dr. Rivas and I repeated the examination today at around noontime and the same findings were noted. The patient had no brainstem reflexes. There was some deviation from distended apnea test due to the reasons mentioned above. The patient became profoundly hypoxic with a 3 minutes of the apnea test and he had a 20 mm mercury of pCO2 rise. No change compared to the yesterday's examination On 02/22/2017, the patient is essentially the same. The patient is completely unresponsive. Brainstem reflexes are still absent. 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 The patient is on a D5 water infusion and DDAVP will be given. 3 shock, likely central neurogenic shock following cardiac arrest and severe hypoxic/anoxic encephalopathy. The patient is on 4 mics of the low-fat for hemodynamic support 4 acute kidney injury secondary to above, creatinine stable 5 alcohol abuse 6 diabetes mellitus, currently on insulin drip for blood sugar control 7 hepatitis C 8 electrode imbalance with hypo-anemia, being replaced 9 drug overdose with a combination of heroin and crack. The patient is downtime was more than 20 minutes at home, possibly a total of 2 hours. 10 hypoxic respiratory failure with suspected bilateral lower lobe pneumonia. Plan Patient has been declared brain on 2 separate neurologic examination and this was done by 2 board certified critically care specialists. Time of is 12:10 PM on 02/21/2017. We will continue the supportive care in the event this patient may become a candidate for organ donation. Based on this, we'll start the patient on DDAVP 1 g twice a day. We'll continue to D5 water at the rate of 1 50 mL an hour and add free water supplementation 200 mL per NG every 4 hours. We will replace the potassium level aggressively and bring it above 4. We'll continue the Zosyn and Levaquin. Continue vent support. Wean off the Depo fed as tolerated to keep him ERT a pressure above 65. We'll continue to follow make further recommendations based on his progress. Is a critically care evaluation was done and 32 minutes. Gift of life is on the case and further discussion will made on his organ donation status accordingly. Time with Patient: Greater than 30
--- NOTE | 2017-02-22 09:19 | PCN ---
DATE OF PROCEDURE: PREOPERATIVE DIAGNOSIS: Cardiac arrest. POSTOPERATIVE DIAGNOSIS: Cardiac arrest. ARTERIAL LINE PLACEMENT Indication: Hemodynamic monitoring. A time-out was completed verifying correct patient, procedure, site, positioning, and implant(s) or special equipment if applicable. Yvon's test was performed to ensure adequate perfusion. The patient's left wrist was prepped and draped in sterile fashion. 1% Lidocaine was used to anesthetize the area. An 18G Arrow arterial line was introduced into the left radial artery. The catheter was threaded over the guide wire and the needle was removed with appropriate pulsatile blood return. Blood loss was minimal. The catheter was then sutured in place to the skin and a sterile dressing applied. Perfusion to the extremity distal to the point of catheter insertion was checked and found to be adequate. The patient tolerated the procedure well and there were no complications. No bedside complications or bleeding.
[2017-02-22] MEDS ORDERED: DESMOPRESSIN INJ 1 MCG in SODIUM CHLORIDE 0.9% 50 ML IVPB SCH (09:30)
[2017-02-22 10:10] LABS: Glucose,Whole Blood 173 mg/dL (75-99)
[2017-02-22 11:34] VITALS: BMI 37.0
[2017-02-22 11:51] LABS: Glucose,Whole Blood 213 mg/dL (75-99)
--- NOTE | 2017-02-22 12:40 | EEG ---
DATE OF SERVICE: 02/19/2017 INDICATIONS FOR EXAMINATION: Unresponsiveness. AGE: 51Y DESCRIPTION OF THE PROCEDURE: This EEG was performed using a 21-channel digital electroencephalograph, following the international 10-20 system. DESCRIPTION OF THE RECORDING: From the beginning of the tracing, and with the patient's eyes closed, the background rhythm was mostly consisting of 5 Hz theta frequency in the posterior occipital leads. No obvious asymmetry is seen. Occasional slowing into the delta range is seen. Photic stimulation was performed with no driving response seen. No pathological waves were elicited. Hyperventilation was not performed. No epileptiform discharges were seen throughout the tracing. INTERPRETATION: This EEG is abnormal due to the presence of generalized slowing of the background rhythm, mostly in the theta range and occasionally into the delta range. This is consistent with severe encephalopathy. Given the patient's history, this is likely due to hypoxic encephalopathy. No epileptiform discharges were seen. The absence of epileptiform discharges does not rule out the diagnosis of epilepsy; therefore, clinical correlation is recommended.
[2017-02-22 12:57] VITALS: TEMP 98
[2017-02-22 13:12] VITALS: PULSE 84
[2017-02-22 13:13] LABS: Glucose,Whole Blood 196 mg/dL (75-99)
[2017-02-22 13:24] LABS: Calcium 7.7 mg/dL (8.4-10.2); Magnesium 2.1 mg/dL (1.6-2.3); Phosphorous 2.6 mg/dL (2.5-4.5); Potassium 3.3 mmol/L (3.5-5.1); Total Bilirubin 2.7 mg/dL (0.2-1.3); Total Protein 4.5 g/dL (6.3-8.2)
[2017-02-22 13:25] LABS: Basophils % (A) 0 %; CH 31.7; CHCM 33.2; Eosinophils # (A) 0.3 k/uL (0-0.7); Eosinophils % (A) 5 %; HDW 3.02; HGB 12.2 gm/dL (13.0-17.5); Luc # (Auto) 0.16; Luc % (Auto) 2; Lymphocytes # (A) 1.2 k/uL (1.0-4.8); Lymphocytes % (A) 18 %; MCH 31.7 pg (25.0-35.0); MCHC 33.1 g/dL (31.0-37.0); Mean Platelet Volume 7.6; Monocytes # (A) 0.3 k/uL (0-1.0); Monocytes % (A) 5 %; Neutrophils # (A) 4.7 k/uL (1.3-7.7); Neutrophils % (A) 69 %; RBC 3.86 m/uL (4.30-5.90); RDW 13.4 % (11.5-15.5); WBC 6.8 k/uL (3.8-10.6); WBC (Perox) 6.57
[2017-02-22 14:01] LABS: INR 1.1 (<1.1); Prothrombin Time 11.3 sec (9.0-12.0)
[2017-02-22 14:23] LABS: Glucose,Whole Blood 158 mg/dL (75-99)
[2017-02-22 14:28] LABS: Manual Review Performed
--- NOTE | 2017-02-23 13:08 | DS ---
DATE OF ADMISSION: 02/19/2017 DATE OF DISCHARGE: 02/22/2017 Preliminary cause of : 1. Drug overdose with acute cardiopulmonary arrest, with acute hypoxic respiratory failure on mechanical ventilation. other diagnoses: 2. Acute hypoxic respiratory failure, present on admission. 3. Metabolic encephalopathy. 4. Acute metabolic acidosis. 5. Prolonged cardiopulmonary resuscitation as well as anoxic encephalopathy on the CAT scan. 6. Acute renal failure, multifactorial. 7. Diabetes mellitus type 2, uncontrolled. 8. Increased plasma lactic acidosis secondary to renal failure. 9. Increased AST, ALT, shocked liver. 10. Hypertension, possibly neurogenic shock because of central nervous system dysfunction. 11. Hypoalbuminemia with mild to moderate protein calorie malnutrition. 12. Increased CK. 13. History of alcohol intake and serum alcohol 119 on presentation. 14. Increased WBC. 15. Increased MCV. 16. Diabetes mellitus type 2. 17. History of gastroesophageal reflux. 18. History of hepatitis C. 19. History of back pain, dizziness. 20. History of substance abuse per chart including crack and alcohol remotely. 21. Bilateral consolidations. HISTORY OF PRESENT ILLNESS: This 51-year-old gentleman with a past medical history of multiple medical problems as mentioned earlier was admitted to [facility] after cardiopulmonary unresponsive. Patient had prolonged CPR. The patient was thought to have substance abuse and related metabolic encephalopathy. Patient is thought to have anoxic encephalopathy, despite intensive treatment. Patient's condition did not improve and the brain per protocol was positive after testing by Dr. Simmons and Dr. Guillen on 2 separate occasions and at this time. The patient succumbed to above-mentioned illness and the prognosis remained extremely guarded throughout the hospital stay. Please refer to the multiple consult notes and progress notes for further details. MTDD
== END 2017-02-22 14:15 | disposition expired | DRG 917 ==
LOC: EC 03:20 → 6ICU 06:47
PROVIDERS: ADMIT Hospitalist; ATTEND Hospitalist
PROC: 5A1945Z Respiratory Ventilation, 24-96 Consecutive Hours (ICD-10-PCS; principal; 2017-02-19)
PROC: 5A12012 Performance of Cardiac Output, Single, Manual (ICD-10-PCS; 2017-02-19)
PROC: 0D9670Z Drainage of Stomach with Drainage Device, Via Natural or Artificial Opening (ICD-10-PCS; 2017-02-19)
PROC: 03HY32Z Insertion of Monitoring Device into Upper Artery, Percutaneous Approach (ICD-10-PCS; 2017-02-20)
PROC: 4A133B1 Monitoring of Arterial Pressure, Peripheral, Percutaneous Approach (ICD-10-PCS; 2017-02-20)
PROC: 4A133J1 Monitoring of Arterial Pulse, Peripheral, Percutaneous Approach (ICD-10-PCS; 2017-02-20)
PROC: 02H633Z Insertion of Infusion Device into Right Atrium, Percutaneous Approach (ICD-10-PCS; 2017-02-20)
PROC: 03HY32Z Insertion of Monitoring Device into Upper Artery, Percutaneous Approach (ICD-10-PCS; 2017-02-21)
PROC: 4A133B1 Monitoring of Arterial Pressure, Peripheral, Percutaneous Approach (ICD-10-PCS; 2017-02-21)
PROC: 4A133J1 Monitoring of Arterial Pulse, Peripheral, Percutaneous Approach (ICD-10-PCS; 2017-02-21)
DX: T40.1X1A Poisoning by heroin, accidental (unintentional), initial encounter (principal); J96.01 Acute respiratory failure with hypoxia; G93.6 Cerebral edema; I46.8 Cardiac arrest due to other underlying condition; J18.9 Pneumonia, unspecified organism; G93.41 Metabolic encephalopathy; E44.0 Moderate protein-calorie malnutrition; K72.00 Acute and subacute hepatic failure without coma; G93.1 Anoxic brain damage, not elsewhere classified; E23.2 Diabetes insipidus; N17.9 Acute kidney failure, unspecified; E87.2 Acidosis; E87.1 Hypo-osmolality and hyponatremia; R57.8 Other shock; E11.65 Type 2 diabetes mellitus with hyperglycemia; K21.9 Gastro-esophageal reflux disease without esophagitis; D64.9 Anemia, unspecified; I10 Essential (primary) hypertension; F10.10 Alcohol abuse, uncomplicated; F14.10 Cocaine abuse, uncomplicated; M54.9 Dorsalgia, unspecified; E66.9 Obesity, unspecified; B19.20 Unspecified viral hepatitis C without hepatic coma; Z87.891 Personal history of nicotine dependence; Z68.37 Body mass index [BMI] 37.0-37.9, adult; Y90.5 Blood alcohol level of 100-119 mg/100 ml; Z79.899 Other long term (current) drug therapy; Z79.84 Long term (current) use of oral hypoglycemic drugs; Y92.009 Unspecified place in unspecified non-institutional (private) residence as the place of occurrence of the external cause
CPT/HCPCS: 36415; 36600; 36620; 70450; 71010; 71275; 75635; 80048; 80053; 80306; 80320; 81001; 82009; 82247; 82550; 82553; 82805; 83036; 83605; 83735; 84100; 84450; 84460; 84484; 85025; 85610; 85730; 86850; 86900; 86901; 87040; 87070; 87086; 87205; 93005; 94002; 94003; 94640; 95816

== ENCOUNTER 2017-02-22 14:24 | Inpatient (IN) | payer OTHER ==
[~2017-02-22 14:24] MED LIST: EPINEPHrine 10 ML SYRINGE (0.1 MG/ML) ONE
[2017-02-22 14:46] VITALS: BMI 35.0
[2017-02-22] MEDS ORDERED: NOREPINEPHRIN 16 MG-0.9%NS PMX 16 MG/250 ML ML IV SCH (15:15)
[2017-02-22] MEDS ORDERED: INSULIN REGULAR 100 UNIT/ML VIAL IV ONE (15:33)
[2017-02-22] MEDS ORDERED: VECURONIUM 10 MG VIAL IV ONE (15:37)
[2017-02-22] MEDS ORDERED: ARTIFICIAL TEARS-HYPROMELLOSE DROPS 15 ML BTL BOTH EYES PRN (15:41)
[2017-02-22] MEDS ORDERED: NALOXONE 0.4 MG/ML 10 ML VIAL IVP STA (15:56)
[2017-02-22] MEDS: SODIUM CHLORIDE 0.45% 1,000 ML IV SCH (16:29)
[2017-02-22] MEDS ORDERED: LEVOTHYROXINE 200 MCG IV SCH (16:30)
[2017-02-22] MEDS ORDERED: ALTEPLASE 2 MG VIAL (CATHFLO) IV STA (16:30)
[2017-02-22] MEDS ORDERED: LEVOTHYROXINE IVP 100 MCG/5 ML VIAL IV ONE (16:30)
[2017-02-22] MEDS ORDERED: [UNRECOGNIZED DRUG - OTHER] IV SCH (16:30)
[2017-02-22 16:44] LABS: Amorphous Sediment,Urine Rare /hpf; Appearance,Urine Turbid (Clear); Bilirubin,Urine 1+ (Negative); Glucose,Urine (UA) Negative (Negative); Ketones,Urine Negative (Negative); Leukocyte Esterase,Urine Small (Negative); Nitrite,Urine Negative (Negative); Particle Count 40172; Protein,Urine 2+ (Negative); RBC,Urine 20 /hpf (0-5); UA Billing (MACRO vs. MICRO) MICRO; Urobilinogen,Urine <2.0 mg/dL (<2.0); WBC,Urine 42 /hpf (0-5)
[2017-02-22] MEDS: PIPERACILLIN-TAZOBACTAM 3.375 GM in DEXTROSE/WATER 1 50ML.BAG IVPB SCH (16:46)
[2017-02-22 16:59] LABS: Glucose,Whole Blood 152 mg/dL (75-99)
--- NOTE | 2017-02-22 17:31 | XR ---
EXAMINATION TYPE: XR chest 1V portable DATE OF EXAM: 02/22/2017 5:26 PM CLINICAL HISTORY: Difficulty breathing progress study. Status post liver biopsy. TECHNIQUE: Single AP portable upright view of the chest is obtained. COMPARISON: Chest x-ray from earlier today FINDINGS: There is stable left internal jugular catheter and nasogastric tube. There is persistent l ow lung volumes with small bilateral pleural effusions and associated bibasilar atelectasis and/or in filtrate. Moderate central vascular congestion is redemonstrated. There are stable mild cardiomegaly. Visualized osseous structures are intact. IMPRESSION: Overall stable findings, low lung volumes and cardiomegaly with small bilateral pleural effusions and moderate central vascular congestion and alveolar edema, consider fluid overload state or CHF exacerbation. Clinical correlation advised. No evidence of complication related to recent kade er biopsy.
[2017-02-22 17:38] LABS: Basophils % (A) 0 %; CH 31.9; CHCM 32.5; Eosinophils # (A) 0.3 k/uL (0-0.7); Eosinophils % (A) 4 %; HDW 2.85; HGB 12.3 gm/dL (13.0-17.5); Luc # (Auto) 0.27; Luc % (Auto) 4; Lymphocytes # (A) 1.2 k/uL (1.0-4.8); Lymphocytes % (A) 16 %; MCH 31.9 pg (25.0-35.0); MCHC 32.3 g/dL (31.0-37.0); MCV 98.8 fL (80.0-100.0); Mean Platelet Volume 7.7; Monocytes # (A) 0.5 k/uL (0-1.0); Monocytes % (A) 6 %; Neutrophils # (A) 5.1 k/uL (1.3-7.7); Neutrophils % (A) 69 %; RBC 3.85 m/uL (4.30-5.90); RDW 13.7 % (11.5-15.5); WBC 7.4 k/uL (3.8-10.6); WBC (Perox) 7.38
[2017-02-22 17:45] LABS: ABG Base Excess 3.9 mmol/L; ABG HCO3 28 mmol/L (21-25); ABG PCO2 40 mmHg (35-45); ABG PH 7.45 (7.35-7.45); ABG PO2 83 mmHg (83-108); ABG TCO2 29 mmol/L (19-24)
[2017-02-22] MEDS ORDERED: Potassium Replacement Protocol 1 EACH MISC MISCELLANE PRN (17:57)
[2017-02-22] MEDS ORDERED: POTASSIUM CHLORIDE 20 MEQ in WATER FOR INJECTION 1 100ML.BAG IVPB ONE (17:57)
[2017-02-22] MEDS: METHYLPREDNISOLONE SOD SUCC IVPB SCH (18:37)
[2017-02-22] MEDS: SODIUM CHLORIDE 0.9% IVPB SCH (18:37)
[2017-02-22] MEDS: SODIUM CHLORIDE 0.9% 99 ML with VASOPRESSIN 20 UNIT IV SCH ×2 (20:00)
[2017-02-22] MEDS: ALBUTEROL NEBULIZED 2.5 MG/3 ML INHALATION SCH ×3 (20:24→23:17)
[2017-02-22] MEDS: CHLORHEXIDINE GLUCONATE 15 ML CUP MUCOUS MEM SCH (20:29)
[2017-02-22] MEDS: ARTIFICIAL TEARS OINTMENT 3.5 GM TUBE BOTH EYES SCH (20:29)
[2017-02-22 20:30] LABS: Glucose,Whole Blood 175 mg/dL (75-99)
[2017-02-22] MEDS: VECURONIUM 10 MG VIAL IV PRN (20:42)
[2017-02-22] MEDS ORDERED: FUROSEMIDE 10 MG/ML 4 ML VIAL IV STA (21:57)
[2017-02-22] MEDS ORDERED: POTASSIUM ACETATE 2 MEQ/ML 20 ML VIAL IV SCH (22:00)
[2017-02-22 22:11] LABS: Glucose,Whole Blood 195 mg/dL (75-99)
[2017-02-22] MEDS ORDERED: SODIUM CHLORIDE 0.9% IV ONE (23:00)
[2017-02-22] MEDS ORDERED: POTASSIUM ACETATE IV ONE (23:00)
[2017-02-22 23:07] LABS: Glucose,Whole Blood 202 mg/dL (75-99)
[2017-02-22] MEDS: INSULIN REGULAR 100 UNIT in SODIUM CHLORIDE 0.9% 100 ML IV SCH (23:07)
[2017-02-23] MEDS: PIPERACILLIN-TAZOBACTAM 3.375 GM in DEXTROSE/WATER 1 50ML.BAG IVPB SCH ×2 (00:02→08:59)
[2017-02-23 00:16] LABS: Glucose,Whole Blood 226 mg/dL (75-99)
[2017-02-23] MEDS: METHYLPREDNISOLONE SOD SUCC IVPB SCH ×3 (00:22→13:19)
[2017-02-23] MEDS: SODIUM CHLORIDE 0.9% IVPB SCH ×3 (00:22→13:19)
[2017-02-23 00:29] LABS: Basophils # (A) 0.1 k/uL (0-0.2); Basophils % (A) 1 %; CH 31.4; CHCM 31.7; Eosinophils % (A) 0 %; HDW 2.86; Luc # (Auto) 0.17; Luc % (Auto) 2; Lymphocytes # (A) 0.6 k/uL (1.0-4.8); Lymphocytes % (A) 6 %; MCH 32.4 pg (25.0-35.0); MCHC 32.4 g/dL (31.0-37.0); MCV 99.8 fL (80.0-100.0); Mean Platelet Volume 7.9; Monocytes # (A) 0.4 k/uL (0-1.0); Monocytes % (A) 4 %; Neutrophils # (A) 8.8 k/uL (1.3-7.7); Neutrophils % (A) 88 %; RBC 4.01 m/uL (4.30-5.90); RDW 13.5 % (11.5-15.5); WBC 10.1 k/uL (3.8-10.6); WBC (Perox) 10.61
[2017-02-23 00:39] LABS: Bilirubin, Delta 1.1 mg/dL (0.0-0.2); Total Bilirubin 3.2 mg/dL (0.2-1.3)
[2017-02-23 00:43] LABS: Partial Thromboplastin Time 24.5 sec (22.0-30.0); Prothrombin Time 10.6 sec (9.0-12.0)
[2017-02-23] MEDS: VECURONIUM 10 MG VIAL IV PRN ×2 (01:05→18:52)
[2017-02-23 01:07] LABS: Creatine Kinase MB 3.8 ng/mL (0.0-2.4); Troponin I 0.326 ng/mL (0.000-0.034)
[2017-02-23 01:09] LABS: Amorphous Sediment,Urine Moderate /hpf; Appearance,Urine Turbid (Clear); Bacteria,Urine Rare /hpf; Bilirubin,Urine Negative (Negative); Glucose,Urine (UA) Trace (Negative); Granular Casts,Urine 94 /lpf (0); Ketones,Urine Negative (Negative); Leukocyte Esterase,Urine Small (Negative); Mucus,Urine Rare /hpf; Nitrite,Urine Negative (Negative); Particle Count 23073; Protein,Urine 1+ (Negative); RBC,Urine 21 /hpf (0-5); Sperm,Urine Few /hpf; Squamous Epithelial Cell,Urine 5 /hpf (0-4); UA Billing (MACRO vs. MICRO) MICRO; Urobilinogen,Urine <2.0 mg/dL (<2.0); WBC,Urine 35 /hpf (0-5)
[2017-02-23 01:12] LABS: ABG PCO2 45 mmHg (35-45); ABG PH 7.39 (7.35-7.45); ABG PO2 56 mmHg (83-108)
[2017-02-23 01:13] LABS: ABG Base Excess 2.3 mmol/L; ABG HCO3 27 mmol/L (21-25); ABG TCO2 28 mmol/L (19-24)
[2017-02-23 01:17] LABS: Glucose,Whole Blood 230 mg/dL (75-99)
[2017-02-23 01:21] LABS: Calcium 7.5 mg/dL (8.4-10.2); Phosphorous 5.8 mg/dL (2.5-4.5); Potassium 5.7 mmol/L (3.5-5.1); Total Bilirubin 3.2 mg/dL (0.2-1.3); Total Protein 4.9 g/dL (6.3-8.2)
[2017-02-23] MEDS: ALBUTEROL NEBULIZED 2.5 MG/3 ML INHALATION SCH ×4 (02:06→17:37)
[2017-02-23 02:11] LABS: Glucose,Whole Blood 235 mg/dL (75-99)
[2017-02-23] MEDS ORDERED: FUROSEMIDE 10 MG/ML 4 ML VIAL IV STA (02:20)
[2017-02-23] MEDS: SODIUM CHLORIDE 0.45% 1,000 ML IV SCH (02:23)
[2017-02-23] MEDS ORDERED: SODIUM CHLORIDE 0.45% 1,000 ML IV SCH (03:00)
[2017-02-23 03:04] LABS: Glucose,Whole Blood 228 mg/dL (75-99)
[2017-02-23 04:06] LABS: Glucose,Whole Blood 239 mg/dL (75-99)
[2017-02-23] MEDS: SODIUM CHLORIDE 0.9% 99 ML with VASOPRESSIN 20 UNIT IV SCH ×6 (04:19→12:08)
[2017-02-23 05:04] LABS: Glucose,Whole Blood 253 mg/dL (75-99)
[2017-02-23] MEDS ORDERED: LEVOTHYROXINE 200 MCG IV SCH (06:00)
[2017-02-23] MEDS ORDERED: [UNRECOGNIZED DRUG - OTHER] IV SCH (06:00)
[2017-02-23 06:08] LABS: Glucose,Whole Blood 237 mg/dL (75-99)
[2017-02-23] MEDS: INSULIN REGULAR 100 UNIT in SODIUM CHLORIDE 0.9% 100 ML IV SCH ×2 (06:11→12:04)
[2017-02-23 07:04] LABS: Glucose,Whole Blood 233 mg/dL (75-99)
--- NOTE | 2017-02-23 07:38 | ECHOF ---
Referral Reason: MEASUREMENTS -------- HEIGHT: 182.9 cm WEIGHT: 117.0 kg BP: 80/47 RVIDd: 3.0 cm (< 3.3) IVSd: 1.5 cm (0.6 - 1.1) LVIDd: 3.5 cm (3.9 - 5.3) LVPWd: 1.5 cm (0.6 - 1.1) IVSs: 2.1 cm LVIDs: 1.9 cm LVPWs: 2.0 cm Ao Diam: 3.2 cm (2.0 - 3.7) AV Cusp: 2.5 cm (1.5 - 2.6) LA Diam: 3.3 cm (2.7 - 3.8) MV EXCURSION: 18.807 mm (> 18.000) MV EF SLOPE: 80 mm/s (70 - 150) EPSS: 0.6 cm MV E Nico: 0.55 m/s MV DecT: 182 ms MV A Nico: 0.61 m/s MV E/A Ratio: 0.91 RAP: 5.00 mmHg RVSP: 9.71 mmHg FINDINGS -------- Sinus rhythm. This was a technically difficult study with suboptimal views. Pt. on a vent. There is moderate concentric left ventricular hypertrophy. Overall left ventricular systolic function is low-normal with, an EF between 50 - 55 %. The right ventricle is normal in size and function. The left atrium is normal in size. The right atrium is normal in size. 1.5mg of Definity was utilized for enhancement of images The aortic valve is trileaflet and appears structurally normal. The mitral valve leaflets are mildly thickened. There is trace mitral regurgitation. Trace tricuspid regurgitation present. The right ventricular systolic pressure, as measured by Doppler, is 9.71mmHg. Pulmonic valve appears structurally normal. The aortic root size is normal. The pericardium is normal. CONCLUSIONS -------- 1. Sinus rhythm. 2. The aortic valve is trileaflet and appears structurally normal. 3. The mitral valve leaflets are mildly thickened. 4. There is trace mitral regurgitation. 5. Trace tricuspid regurgitation present. 6. The right ventricular systolic pressure, as measured by Doppler, is 9.71mmHg. 7. Pulmonic valve appears structurally normal. 8. The aortic root size is normal. 9. The pericardium is normal. 10. This was a technically difficult study with suboptimal views. 11. Pt. on a vent. 12. There is moderate concentric left ventricular hypertrophy. 13. Overall left ventricular systolic function is low-normal with, an EF between 50 - 55 %. 14. The right ventricle is normal in size and function. 15. The left atrium is normal in size. 16. The right atrium is normal in size. 17. 1.5mg of Definity was utilized for enhancement of images SOFTWARE ENGINEER KERNEL: Olimpia Chowdary RDCS
[2017-02-23 08:11] LABS: ABG PH 7.47 (7.35-7.45)
[2017-02-23 08:12] LABS: ABG Base Excess 3.2 mmol/L; ABG HCO3 27 mmol/L (21-25); ABG PCO2 38 mmHg (35-45); ABG PO2 60 mmHg (83-108); ABG TCO2 28 mmol/L (19-24)
[2017-02-23 08:14] LABS: Glucose,Whole Blood 243 mg/dL (75-99)
--- NOTE | 2017-02-23 08:28 | XR ---
EXAMINATION TYPE: XR chest 1V portable DATE OF EXAM: 02/23/2017 6:13 AM CLINICAL HISTORY: Difficulty breathing progress study. TECHNIQUE: Single AP portable upright view of the chest is obtained. COMPARISON: Chest x-ray from one day earlier FINDINGS: And endotracheal tube, orogastric tube, and left internal jugular central venous catheter are stable in appearance. There is persistent mild cardiomegaly with central vascular congestion and alveolar edema as well as small bilateral pleural effusions. Alveolar edema slightly worsened versus prior. No pneumothorax is seen bilaterally. Osseous structures are intact. Low lung volumes are redemonstrated. IMPRESSION: Suspect CHF exacerbation as there is cardiomegaly with central vascular congestion and ce ntral alveolar edema as well as small bilateral pleural effusions all redemonstrated. Some progressio n in central alveolar edema is noted since prior study suggesting some interval worsening.
[2017-02-23] MEDS: ARTIFICIAL TEARS OINTMENT 3.5 GM TUBE BOTH EYES SCH (08:59)
[2017-02-23] MEDS: CHLORHEXIDINE GLUCONATE 15 ML CUP MUCOUS MEM SCH (09:00)
[2017-02-23 09:02] LABS: Basophils % (A) 0 %; CH 31.5; CHCM 32.8; Eosinophils % (A) 0 %; HDW 2.96; Luc # (Auto) 0.08; Luc % (Auto) 1; Lymphocytes # (A) 0.5 k/uL (1.0-4.8); Lymphocytes % (A) 8 %; MCH 32.2 pg (25.0-35.0); MCHC 33.3 g/dL (31.0-37.0); MCV 96.7 fL (80.0-100.0); Mean Platelet Volume 8.1; Monocytes # (A) 0.3 k/uL (0-1.0); Monocytes % (A) 5 %; Neutrophils # (A) 5.4 k/uL (1.3-7.7); Neutrophils % (A) 85 %; RBC 3.41 m/uL (4.30-5.90); RDW 13.3 % (11.5-15.5); WBC 6.4 k/uL (3.8-10.6)
[2017-02-23 09:03] LABS: INR 1.1 (<1.1); Partial Thromboplastin Time 25.1 sec (22.0-30.0); Prothrombin Time 11.1 sec (9.0-12.0)
[2017-02-23 09:18] LABS: Glucose,Whole Blood 179 mg/dL (75-99)
[2017-02-23 09:28] LABS: Ionized Calcium 4.5 mg/dL (4.5-5.3)
--- NOTE | 2017-02-23 09:36 | US ---
EXAMINATION TYPE: US biopsy liver DATE OF EXAM: 02/22/2017 4:12 PM COMPARISON: NONE HISTORY: GIFT OF LIFE DONATION The procedure was explained to the patient. The risks, complications, benefits, and alternatives wer e discussed and any questions were answered. Informed consent was obtained. Patient was placed supi ne on the ultrasound table and prepped and draped in the usual sterile fashion. All elements of maximal barrier and sterile technique utilized. Utilizing CT guidance, an 18 gauge core biopsy needle access into the left lobe of the liver was ac hieved and a single 18 gauge core sample was obtained. The patient was stable throughout the procedu re and remained stable upon discharge. IMPRESSION: 1. Successful 18 gauge core biopsy of the liver.
[2017-02-23 09:45] LABS: Creatine Kinase MB 2.2 ng/mL (0.0-2.4)
[2017-02-23 09:53] LABS: Troponin I 0.231 ng/mL (0.000-0.034)
[2017-02-23 09:56] LABS: Bilirubin, Delta 1.1 mg/dL (0.0-0.2); Calcium 7.4 mg/dL (8.4-10.2); Magnesium 2.2 mg/dL (1.6-2.3); Phosphorous 3.2 mg/dL (2.5-4.5); Total Bilirubin 2.5 mg/dL (0.2-1.3); Total Protein 4.6 g/dL (6.3-8.2)
[2017-02-23 10:07] LABS: Glucose,Whole Blood 171 mg/dL (75-99)
[2017-02-23 10:40] LABS: Amorphous Sediment,Urine Rare /hpf; Appearance,Urine Cloudy (Clear); Bilirubin,Urine Negative (Negative); Glucose,Urine (UA) Negative (Negative); Ketones,Urine Negative (Negative); Leukocyte Esterase,Urine Negative (Negative); Mucus,Urine Rare /hpf; Nitrite,Urine Negative (Negative); PH, Urine 5.5 (5.0-8.0); Particle Count 9065; Protein,Urine 1+ (Negative); RBC,Urine 3 /hpf (0-5); Specific Gravity,Urine 1.013 (1.001-1.035); Squamous Epithelial Cell,Urine <1 /hpf (0-4); UA Billing (MACRO vs. MICRO) MICRO; Urobilinogen,Urine <2.0 mg/dL (<2.0); WBC,Urine 2 /hpf (0-5)
--- NOTE | 2017-02-23 10:48 | P.PN ---
Progress Note - Text 81-year-old male patient, with clinical that was declared on Tuesday 12:10 p.m. The patient was kept on a mechanical ventilator and he is still condition was supported as the patient was being investigated for organ donation. The family was made aware in regards to get stuff life. Today's evaluation was completed. The patient was declared not a candidate for organ donation based on his medical problems, history, comorbidities and hepatitis C status. As such no organ procurement will be done. Meanwhile, the patient's condition essentially unchanged. He is still intubated on a mechanical ventilator. History patient is being supported it is on a vasopressin infusion at 0.04 units per minutes. He is making adequate urine output. Is on a mechanical ventilator on assist control mode. His PEEP has been increased up to 12 and is on 100% FiO2. Rest of the electrolytes are within normal. Renal function is still impaired with a creatinine of 2.5. The family were made aware and ventilator will be discontinued and withdrawal care once family is at the bedside.
[2017-02-23 11:25] LABS: Glucose,Whole Blood 145 mg/dL (75-99)
[2017-02-23 12:03] LABS: Glucose,Whole Blood 124 mg/dL (75-99)
[2017-02-23 12:12] VITALS: RESP 28
[2017-02-23 12:46] LABS: Glucose,Whole Blood 145 mg/dL (75-99)
[2017-02-23 12:46] LABS: Glucose,Whole Blood 164 mg/dL (75-99)
[2017-02-23 13:12] LABS: Glucose,Whole Blood 145 mg/dL (75-99)
[2017-02-23 16:12] LABS: Glucose,Whole Blood 133 mg/dL (75-99)
--- NOTE | 2017-02-23 18:21 | PN ---
This is a 51-year-old gentleman who was declared brain- after prolonged hypoxia. This is apparently attributed secondary to a drug overdose. Patient apparently also was noted to have hepatitis C after the patient was declared brain . Patient was not a candidate for organ transplantation. Patient was seen in the intensive care unit today, was on pressor support and on the ventilator. Nonresponsive at this time. No other abnormalities. No other overnight events are reported. GOALS OF CARE ARE COMFORT MEASURES ONLY. Patient is currently admitted to hospice. Withdrawal of care will be done later today once the family is at bedside. No further recommendations at this time. Patient appears to be comfortable. Continue ongoing care. Once family is at bedside, withdrawal of care can be done accordingly. This was discussed with R.N. discharge summary as well Patient was comfort measures care was withdrawn cause of was brain- secondary to prolonged hypoxia from a substance overdose MTDD
[2017-02-23 19:32] VITALS: TEMP 97.5
[2017-02-23 19:33] VITALS: BP 124/74; PULSE 68
== END 2017-02-23 20:21 | disposition expired | DRG 917 ==
LOC: 6ICU 14:24
PROVIDERS: ADMIT Hospitalist; ATTEND Hospitalist
PROC: 5A1945Z Respiratory Ventilation, 24-96 Consecutive Hours (ICD-10-PCS; principal; 2017-02-22)
DX: T50.901A Poisoning by unspecified drugs, medicaments and biological substances, accidental (unintentional), initial encounter (principal); J96.00 Acute respiratory failure, unspecified whether with hypoxia or hypercapnia; K72.01 Acute and subacute hepatic failure with coma; E87.4 Mixed disorder of acid-base balance; G93.1 Anoxic brain damage, not elsewhere classified; N17.9 Acute kidney failure, unspecified; E44.0 Moderate protein-calorie malnutrition; R09.02 Hypoxemia; B19.20 Unspecified viral hepatitis C without hepatic coma; Z51.5 Encounter for palliative care; E11.9 Type 2 diabetes mellitus without complications; K21.9 Gastro-esophageal reflux disease without esophagitis; F10.10 Alcohol abuse, uncomplicated; F14.10 Cocaine abuse, uncomplicated; Z68.35 Body mass index [BMI] 35.0-35.9, adult; M47.9 Spondylosis, unspecified; Z86.74 Personal history of sudden cardiac arrest; Z87.891 Personal history of nicotine dependence; Z79.84 Long term (current) use of oral hypoglycemic drugs; Z79.899 Other long term (current) drug therapy
CPT/HCPCS: 47000; 71010; 76942; 80053; 81001; 82150; 82248; 82330; 82550; 82553; 82805; 83605; 83690; 83735; 83880; 84100; 84484; 85025; 85610; 85730; 93306; 94003; 94640